=== PATIENT | female | born 1950 | race Caucasian/White ===

== ENCOUNTER → 2023-11-03 12:28 | Outpatient (REF) | payer MEDICARE, SELFPAY | LOC: HWRAD 12:28 | PROVIDERS: ATTENDING PHYSICIAN Internal Medicine Gastroenterology; FAMILY PHYSICIAN Internal Medicine | DX: R14.0 Abdominal distension (gaseous) (principal) | CPT/HCPCS: 76700 ==

== ENCOUNTER → 2023-11-15 17:50 | Outpatient (REF) | payer MEDICARE, SELFPAY | LOC: RCS 17:50 | PROVIDERS: ATTENDING PHYSICIAN Internal Medicine Cardiovascular Disease; FAMILY PHYSICIAN Internal Medicine | DX: R06.02 Shortness of breath (principal); I34.0 Nonrheumatic mitral (valve) insufficiency | CPT/HCPCS: 71046; 93306 ==

== ENCOUNTER 2023-11-29 16:18 | Emergency (ER) | payer MEDICARE, SELFPAY ==
[2023-11-29 16:28] VITALS: BP 94/68
[2023-11-29 18:33] VITALS: BMI 32.1
[2023-11-29 18:35] VITALS: BP 114/67
--- NOTE | 2023-11-29 19:11 | ED.MUSCINJ ---
HPI-Injury
General
Chief Complaint: Musculo-Skeletal Complaint
Source: patient
Exam Limitations: none
Time Seen by Provider: 11/29/23 18:00
Nursing documentation reviewed up to this point in time: agreed with
Travel History
Have you had any contact with someone who has COVID-19?: No
Do you have any symptoms of coronavirus? Fever > 100 degrees, chills, cough, shortness of breath, sore throat, loss of taste or smell, muscle aches, or headache?: No
History of Present Illness-Injury
Is this injury a work related problem?: No
Is pt an associate of [facility]?: No
Initial Injury comments:
Patient to ED with complaint of pain and swelling to left lat ankle. States she rolled ankle this afternoon. Unable to bear weight due to pain. Brought to ED by family for eval.
Past History
Past History
ED Past Medical History: HTN, Hypothyroidism, Other (ETOH abuse/dependency, C. difficile) and Other (Patient has a history of neck and back pain, Mitral valve prolapse, arthritis, thyroid disorder.)
ED Past Surgical History: Appendectomy, Gynecological and Other (Patient has history of thyroid surgery due to thyroid cancer, right knee surgery, tubal ligation, hysterectomy, hernia surgery, Savage cyst surgery, and lip surgery x8)
Patient has exhibited threatening behavior?: No
PSI?: No
Social History
Tobacco: Non-smoker
Alcohol: Daily (Wine at least 3 glasses)
Drug: None
Personal:
Living: alone
Employment: Retired
Family History
Family History: Diabetes and Other (Noncontributory)
Review of Systems
Review of Systems
Allergies reviewed?: Yes
All Other Systems: ROS reviewed and negative except as documented in HPI and ROS
Constitutional: Reports no symptoms
Musculoskeletal: Reports joint pain (pain swelling and bruising to left lat nakle)
Skin: Reports no symptoms
Neurological: Reports no symptoms
Psychiatric: Reports no symptoms
Musculoskeletal Injury Exam
Musculoskeletal Injury Exam
Left Lateral Ankle:
Pain with Movement?: Moderate
Tender to palpation?: Moderate
Soft tissue swelling?: Moderate
External deformity and angulation?: None
Joint effusion?: None
Contusion?: None
Hematoma-local bleeding into tissue?: Moderate
Strain- Sprain- Tear (Connective tissue injury)?: Moderate
Crepitus with movement?: No
Joint instability?: No
Malalignment/deformity?: No
Range of motion: Limited
Distal skin color and temperature: normal-warm & good color
Capillary Refill: normal
Normal distal neurovascular exam?: Yes
Peripheral Pulses: posterior tibial (left): 3+ and dorsalis pedis (left): 3+
Phy Exam
General Physical Exam
General Presentation: well appearing and mild distress
General age: appears stated age
General Skin: warm and dry
General Habitus: normal
General Mental: alert
Musculoskeletal Exam
Musculoskeletal Exam: neuro vasc intact and other (Achilles intact. No tenderness base of 5th. Tenderness oveer left proximal tib. Xray neg for fx. No tenderness over navicular.)
Skin Exam
Skin Exam: normal color, warm/dry and no rash
Psychiatric Exam
Psychiatric Exam: normal mood/affect
Injury Course
Orders/Labs/Results
Orders:
Orders
11/29/23 16:33
Ankle, left 3 view CR [CR Ankle - Left Min 3 Views ] Urgent
Comment:
Reason For Exam: pain
11/29/23 18:05
Oxycodone/Acetaminophen [Percocet 5/325] 1 tablet PO NOW STA
Tib/Fib, Left 2 View [CR Leg Tibia/fibula Left 2 Vw] Urgent
Comment:
Reason For Exam: fall, pain
11/29/23 18:39
Ortho Boot Left- Treatment ONCE
Short or tall?: Tall
*Radiology
Radiology exam reviewed: radiology read reviewed
*Pulse Oximetry
Patient hypoxic: no
*Critical Care Note
Total Time (30-74mins, 75-104mins- exclusive of procedures): Not Applicable
ED Attending Note
-
Portions of this chart may have been created with voice recognition software.� Occasional wrong word or��sound alike� substitutions may have occurred due to the inherent limitations of voice recognition software.
Discharge Plan
Departure
Patient Disposition: Home (Routine Discharge)
Date of Disposition: 11/29/23
Time of Disposition: 18:29
Patient with high blood pressure during this ER visit?: No
Condition: Good
Covid-19: Not Applicable
Discharge Problem:
Foot fracture
Instructions: Using Cold for Pain, Foot Fracture
Prescriptions:
New
oxycodone 5 mg capsule
5 mg PO Q6H PRN (Reason: Pain) Qty: 10 0RF
No Action
escitalopram oxalate 10 MG tablet
20 mg PO DAILY
amlodipine [Norvasc] 5 MG tablet
5 mg PO DAILY Qty: 0 0RF
Rx Instructions:
Hold if systolic blood pressure <130 while on Oxycodone
clonazepam 1 MG tablet
1 mg PO BIDPRN PRN (Reason: Anxiety ) Qty: 1 0RF
oxycodone-acetaminophen 5-325 mg Tablet
1 tab PO Q6HPRN PRN (Reason: severe pain)
gabapentin 600 mg Tablet
600 mg PO TID
cholecalciferol (vitamin D3) [Vitamin D3] 25 mcg (1,000 unit) Tablet
25 mcg PO DAILY
Medical Marijuana
2 - 3 tab PO DAILYPRN MDD gummy candies PRN (Reason: mild pain)
atorvastatin 20 mg tablet
20 mg PO DAILY
labetalol 200 MG tablet
200 mg PO BID
Rx Instructions:
Hold if systolic blood pressure <100 while on Oxycodone
levothyroxine [Synthroid] 112 mcg Tablet
112 mcg PO DAILY
loperamide 2 mg Capsule
2 mg PO Q6HPRN PRN (Reason: diarrhea) 10 Days Qty: 40 0RF
vancomycin 125 mg capsule
125 mg PO QID 7 Days Qty: 28 0RF
Referrals:
Jason Morales MD [Active] - Call in 1-3 days for appt
Interventions
Interventions:
*Risk Screen - Suicide Last Done: 11/29/23 16:28
*General Assessment Last Done: 11/29/23 16:28
*Neglect/Abuse Screening Last Done: 11/29/23 16:28
ED-Musculoskeletal Assessment Last Done: 11/29/23 18:38
== END 2023-11-29 19:21 | disposition home or self-care (01) ==
LOC: EMR 16:18
PROVIDERS: EMERGENCY PHYSICIAN Emergency Medicine; FAMILY PHYSICIAN Internal Medicine
DX: S92.252A Displaced fracture of navicular [scaphoid] of left foot, initial encounter for closed fracture (principal); X50.1XXA Overexertion from prolonged static or awkward postures, initial encounter
CPT/HCPCS: 99283; 73590; 73610

== ENCOUNTER 2023-12-13 06:12 | Day surgery (SDC) | payer MEDICARE, SELFPAY ==
[2023-12-13] VITALS (10 sets, daily range): BP systolic 99–129; BP diastolic 62–78; BMI 31.8
[2023-12-13] MEDS: NORMOSOL-R 1000 IV (09:42)
[2023-12-13] MEDS: TYLENOL 1000 MG PO (09:42)
[2023-12-13] MEDS: CELEBREX 200 MG PO (09:42)
[2023-12-13] MEDS: DILAUDID 0.5 MG IV (12:23)
== END 2023-12-13 14:50 | disposition home or self-care (01) ==
LOC: SDS 06:12
PROVIDERS: ATTENDING PHYSICIAN Student in an Organized Health Care Education/Training Program
DX: S92.342A Displaced fracture of fourth metatarsal bone, left foot, initial encounter for closed fracture (principal); S92.352A Displaced fracture of fifth metatarsal bone, left foot, initial encounter for closed fracture; S93.492A Sprain of other ligament of left ankle, initial encounter; S93.412A Sprain of calcaneofibular ligament of left ankle, initial encounter; S90.02XA Contusion of left ankle, initial encounter; W10.9XXA Fall (on) (from) unspecified stairs and steps, initial encounter
CPT/HCPCS: 27695; 28475 ×2; 76000; C1713

== ENCOUNTER → 2024-03-08 13:41 | Outpatient (REF) | payer MEDICARE, SELFPAY | LOC: REG 13:41 | PROVIDERS: ATTENDING PHYSICIAN Internal Medicine Gastroenterology; FAMILY PHYSICIAN Internal Medicine | DX: R19.7 Diarrhea, unspecified (principal) | CPT/HCPCS: 82653; 83993; 87045; 87046; 87324; 87328; 87329; 87427; 87449 ==

== ENCOUNTER → 2024-03-14 11:27 | Outpatient (REF) | payer MEDICARE, SELFPAY | LOC: RAD 11:27 | PROVIDERS: ATTENDING PHYSICIAN Internal Medicine Gastroenterology; FAMILY PHYSICIAN Internal Medicine | DX: R19.7 Diarrhea, unspecified (principal) | CPT/HCPCS: 74018 ==

== ENCOUNTER 2024-06-27 12:41 | Emergency (ER) | payer MEDICARE, SELFPAY ==
[2024-06-27 12:44] VITALS: BP 130/85
--- NOTE | 2024-06-27 12:48 | ED.GENMED ---
ED Provider Triage
<Darline Brunson PA-C - Last Filed: 06/27/24 12:54>
-
Patient seen by provider in Triage?: Seen in Triage
Attestation: A medical screening examination has been initiated by a qualified medical provider. Based on the assessment performed at this time, it has been determined that an emergent medical condition may exist and the patient has been informed
that further medical evaluation and possible additional diagnostic testing may be needed.
HPI: 73yoF here for detox eval. Patient drinks 2 bottles of wine/day. Last drink 1 hour ago. Wants help going through withdrawal. Had a fall last night with +head strike. No hx of withdrawal seizures.
GENERAL: Alert , in no apparent distress
EYE: No visual abnormalities.
NECK: Trachea midline
ENT: No visible abnormalities.
LUNGS: No acute respiratory distress
NEUROLOGICAL: Alert and oriented
SKIN: Skin intact. No visible changes.
MUSCULOSKELETAL: Moving extremities normally
PSYCH: Normal and appropriate interaction.
This is a medical evaluation conducted in person to initiate diagnostic evaluation and provide initial therapeutics. Please see further documentation by the treating clinician.
Labs, ETOH level, EKG, and CT head/facial bones/cervical spine ordered.
History of Present Illness
<Darline Brunson PA-C - Last Filed: 06/27/24 12:54>
General
Chief Complaint: Alcohol Problem
Time Seen by Provider: 06/27/24 13:49
<[place] Gar[place] PA-C - Last Filed: 06/27/24 15:05>
General
Source: patient
History of Present Illness
History of Present Illness:
73-year-old female with past medical history of hypertension, hyperlipidemia, previous thyroid cancer, anxiety and depression, alcohol abuse presenting to the emergency department with family with concerns of worsening alcohol use over the last 2
weeks. Patient's daughter reports that patient has been depressed stemming from multiple issues over many years including the of her approximately 15 years ago which was a sudden due to a cerebral aneurysm. About 5 years ago
patient was admitted to this facility for alcohol withdrawal and since that time had been sober up until about 1 year ago. Patient would have the occasional drink but started binge drinking again about 2 weeks ago. Patient reportedly fell
yesterday injuring her left lip but otherwise presently has no other concerns. Denies any SI or HI, no other substance abuse.
Past History
<Darline Brunson PA-C - Last Filed: 06/27/24 12:54>
Past History
ED Past Medical History: HTN, Hypothyroidism, Other (ETOH abuse/dependency, C. difficile) and Other (Patient has a history of neck and back pain, Mitral valve prolapse, arthritis, thyroid disorder.)
ED Past Surgical History: Appendectomy, Gynecological and Other (Patient has history of thyroid surgery due to thyroid cancer, right knee surgery, tubal ligation, hysterectomy, hernia surgery, Savage cyst surgery, and lip surgery x8)
Patient has exhibited threatening behavior?: No
PSI?: No
Social History
Tobacco: Non-smoker
Alcohol: Daily (Wine at least 3 glasses)
Drug: None
Personal:
Living: alone
Employment: Retired
Family History
Family History: Diabetes and Other (Noncontributory)
Review of Systems
<[place] Gar[place] PA-C - Last Filed: 06/27/24 15:05>
Review of Systems
All Other Systems: ROS reviewed and negative except as documented in HPI and ROS
Phy Exam
<[place] PA-C - Last Filed: 06/27/24 15:05>
Physical Exam
Physical Exam:
GENERAL: Alert , in no apparent distress
EYE: conjunctiva clear
NECK: Supple
ENT: o/p clr, mmm. small ecchymosis lateral upper/lower left lip
CARDIAC: Regular rate and rhythm
LUNGS: Clear breath sounds bilaterally, no acute respiratory distress, no wheezes/rales/rhonchi
NEUROLOGICAL: Alert and oriented x 3, no tremors
SKIN: Warm and dry, skin intact.
MUSCULOSKELETAL: well perfused.
PSYCH: Normal and appropriate interaction.
Scores
<[place] PA-C - Last Filed: 06/27/24 15:05>
Heart Failure Risk
Heart Failure Risk Score: Not Applicable
Heart Score for Chest Pain Patients
STEMI patient?: Not applicable
Withdrawal Assessment of Alcohol
Withdrawal Assessment Completed?: Yes
Nausea and Vomiting: No nausea and no vomiting
Tactile Disturbances: None
Tremor: No tremor
Auditory Disturbances: Not present
Paroxysmal Sweats: No sweat visible
Visual Disturbances: Not present
Anxiety: Mild anxiety
Headache, Fullness in Head: Not present
Agitation: Normal activity
Orientation and clouding of sensorium: Oriented and can do serial additions
Total CIWA Score: 1
Alcohol Withdrawal Medication Recommendation: Equal to MSAS Score 0-4. Monitor & re-assess q2hrs, NO MEDICATION NEEDED
Course
<Darline Brunson PA-C - Last Filed: 06/27/24 12:54>
Orders/Labs/Results
Orders:
Orders
06/27/24 12:52
Electrocardiogram (*1) Urgent
Reason for Study: Other
Other Reason for Exam: alcohol withdrawal
CT Cervical Spine W/o Iv Contr Urgent
Comment:
Reason For Exam: Fall, intoxication
CT Facial Bones W/o Iv Contras Urgent
Comment:
Reason For Exam: Fall, intoxication
CT Head W/o Iv Contrast Urgent
Comment:
Reason For Exam: Fall, intoxication
EKG- Treatment ONCE
06/27/24 12:58
Alcohol Urgent
Complete Blood Count/With Diff Urgent
Comprehensive Metabolic Panel Urgent
Magnesium Urgent
Abnormal Lab Results
06/27/24
12:58
RBC 4.10 L 10^6/uL
(4.20-5.40)
MCH 31.7 H pg
(27.0-31.0)
RDW 15.2 H %
(11.5-14.5)
Potassium 5.5 H mmol/L
(3.5-5.1)
Chloride 96 L mmol/L
(98-107)
Carbon Dioxide 20 L mmol/L
(22-30)
Glucose 102 H mg/dl
(70-99)
AST 68 H U/L
(14-36)
ALT 37 H U/L
(0-35)
Albumin 5.4 H g/dl
(3.5-5.0)
06/27/24 12:58
06/27/24 12:58
Vital Signs
Initial and Last Documented VS:
Initial Vital Signs
Temp Pulse Resp BP Pulse Ox
98.4 F 76 18 130/85 93
06/27/24 12:44 06/27/24 12:44 06/27/24 12:44 06/27/24 12:44 06/27/24 12:44
Last Documented Vital Signs
Temp Pulse Resp BP Pulse Ox
98.4 F 74 16 150/89 95
06/27/24 12:44 06/27/24 14:22 06/27/24 14:22 06/27/24 14:22 06/27/24 14:22
<[place] Garza PA-C - Last Filed: 06/27/24 15:05>
Orders/Labs/Results
Orders:
Orders
06/27/24 12:52
Electrocardiogram (*1) Urgent
Reason for Study: Other
Other Reason for Exam: alcohol withdrawal
CT Cervical Spine W/o Iv Contr Urgent
Comment:
Reason For Exam: Fall, intoxication
CT Facial Bones W/o Iv Contras Urgent
Comment:
Reason For Exam: Fall, intoxication
CT Head W/o Iv Contrast Urgent
Comment:
Reason For Exam: Fall, intoxication
EKG- Treatment ONCE
06/27/24 12:58
Alcohol Urgent
Complete Blood Count/With Diff Urgent
Comprehensive Metabolic Panel Urgent
Magnesium Urgent
Abnormal Lab Results
06/27/24
12:58
RBC 4.10 L 10^6/uL
(4.20-5.40)
MCH 31.7 H pg
(27.0-31.0)
RDW 15.2 H %
(11.5-14.5)
Potassium 5.5 H mmol/L
(3.5-5.1)
Chloride 96 L mmol/L
(98-107)
Carbon Dioxide 20 L mmol/L
(22-30)
Glucose 102 H mg/dl
(70-99)
AST 68 H U/L
(14-36)
ALT 37 H U/L
(0-35)
Albumin 5.4 H g/dl
(3.5-5.0)
06/27/24 12:58
06/27/24 12:58
Vital Signs
Initial and Last Documented VS:
Initial Vital Signs
Temp Pulse Resp BP Pulse Ox
98.4 F 76 18 130/85 93
06/27/24 12:44 06/27/24 12:44 06/27/24 12:44 06/27/24 12:44 06/27/24 12:44
Last Documented Vital Signs
Temp Pulse Resp BP Pulse Ox
98.4 F 74 16 150/89 95
06/27/24 12:44 06/27/24 14:22 06/27/24 14:22 06/27/24 14:22 06/27/24 14:22
<[place] Garza PA-C - Last Filed: 06/27/24 15:05>
MDM/Problems Addressed
MDM/Problems Addressed:
73-year-old female presenting to the emergency department for evaluation of alcohol abuse. Daughter was concerned for possible withdrawal. Patient not exhibiting any signs of acute withdrawal. I would not expect patient to have signs at this time
given her last drink was approximately 1 hour prior to arrival to the emergency department. I did offer consultation with [facility] as well as [facility] however patient declines both and states she would not want to do any inpatient
management. I explained to the patient that by agreeing to be consulted with with these facilities does not mean she would need to go inpatient but she could merely help as an outpatient and other resources however she still declines. Patient is
going to go home with her daughter and stay with her for the evening. Will prescribe small course of Librium to help with withdrawal symptoms if patient starts with any signs of withdrawal. Both the patient and daughter were counseled on signs of
withdrawal and return precautions to the ER. Patient is otherwise stable for discharge.
Chronic conditions affecting care: Psychiatric illness (Anxiety/depression/alcohol abuse)
Acute Exacerbation and/or Progression of Chronic Illness: Psychiatric illness (Anxiety/depression/alcohol abuse.)
<[place] Gar[place] PA-C - Last Filed: 06/27/24 15:05>
*Pulse Oximetry
Patient hypoxic: no
*EKG
Interpreted by ED Provider?: Yes
Heart Rate: 72
Rate: normal
Rhythm: sinus
Prospect: left axis deviation
Ischemia: T-wave inversion (V1)
*Critical Care Note
Total Time (30-74mins, 75-104mins- exclusive of procedures): Not Applicable
Data Reviewed
Review of Other/Old Records Reveals: Labs and Records
Source: patient, records and family
ED Attending Note
<Darline Brunson PA-C - Last Filed: 06/27/24 12:54>
-
Portions of this chart may have been created with voice recognition software.� Occasional wrong word or��sound alike� substitutions may have occurred due to the inherent limitations of voice recognition software.
Discharge Plan
Departure
Patient Disposition: Home (Routine Discharge)
Date of Disposition: 06/27/24
Time of Disposition: 14:27
Patient with high blood pressure during this ER visit?: Yes
Discharge Problem:
Alcohol abuse
Instructions: Alcohol Use Disorder (DC)
Prescriptions:
New
chlordiazepoxide HCl 25 mg capsule
25 mg PO BID PRN (Reason: alcohol withdrawal) Qty: 6 0RF
No Action
escitalopram oxalate 10 MG tablet
20 mg PO DAILY
amlodipine [Norvasc] 5 MG tablet
5 mg PO DAILY Qty: 0 0RF
Rx Instructions:
Hold if systolic blood pressure <130 while on Oxycodone
clonazepam 1 MG tablet
1 mg PO BIDPRN PRN (Reason: Anxiety ) Qty: 1 0RF
oxycodone-acetaminophen 5-325 mg Tablet
1 tab PO Q6HPRN PRN (Reason: severe pain)
labetalol 200 MG tablet
200 mg PO BID
Rx Instructions:
Hold if systolic blood pressure <100 while on Oxycodone
levothyroxine [Synthroid] 112 mcg Tablet
112 mcg PO DAILY
Rx Instructions:
Patient needs brand name synthroid
atorvastatin [Lipitor] 20 mg Tablet
20 mg PO DAILY
famotidine [Pepcid] 20 mg Tablet
20 mg PO DAILY
Referrals:
Axel Becerra MD [Family Provider] -
Interventions
Interventions:
*Risk Screen - Suicide Last Done: 06/27/24 12:44
*General Assessment Last Done: 06/27/24 12:44
*Neglect/Abuse Screening Last Done: 06/27/24 12:44
*ED COVID-19 Vaccine History Last Done: 06/27/24 12:51
*Nursing Disposition Last Done: 06/27/24 14:44
ED- Neurological Assessment Last Done: 06/27/24 14:16
ED-Psychological Assessment Last Done: 06/27/24 14:16
Discharge Date and Time
Discharge Date/Time: 06/27/24 14:45
Print Language: MONGOLIAN
[2024-06-27 13:18] LABS: % Basophils 0.9 % (0-2); % Eosinophils 0.9 % (0-6); % Immature Granulocytes 0.2 % (0-0.5); % Lymphocytes 24.5 % (20.5-51.1); % Monocytes 7.9 % (1.7-9.3); % Neutrophils 65.6 % (42.2-75.2); Absolute Basophils 0.1 10^3/uL (0-0.2); Absolute Eosinophils 0.1 10^3/uL (0-0.7); Absolute Lymphocytes 1.4 10^3/uL (1.2-3.4); Absolute Monocytes 0.4 10^3/uL (0.1-0.6); Absolute Neutrophils 3.7 10^3/uL (1.4-6.5); Mean Corp Hgb Conc. 35.1 g/dL (33.0-37.0); Mean Corpuscular Hgb 31.7 pg (27.0-31.0); Mean Corpuscular Volume 90.2 fL (81.0-99.0); Mean Platelet Volume 8.5 fL (7.4-10.4); Nucleated Red Blood Cells % 0 %; Platelet Count 252 10^3/uL (130-400); Red Cell Dist. Width 15.2 % (11.5-14.5); White Blood Cell Count 5.6 10^3/uL (4.8-10.8)
[2024-06-27 13:29] LABS: ALT (SGPT) 37 U/L (0-35); AST (SGOT) 68 U/L (14-36); Albumin 5.4 g/dl (3.5-5.0); Alcohol 230 mg/dl; Alkaline Phosphatase 111 U/L (38-126); Blood Urea Nitrogen 12 mg/dl (7-17); Calcium 9.6 mg/dl (8.4-10.2); Carbon Dioxide 20 mmol/L (22-30); Chloride 96 mmol/L (98-107); Glucose 102 mg/dl (70-99); Magnesium 1.8 mg/dl (1.6-2.3); Potassium 5.5 mmol/L (3.5-5.1); Sodium 137 mmol/L (135-145); Total Bilirubin 0.8 mg/dl (0.2-1.3); Total Protein 7.9 g/dl (6.3-8.2); eGFR > 60.00
[2024-06-27 14:22] VITALS: BP 150/89
== END 2024-06-27 14:45 | disposition home or self-care (01) ==
LOC: EMR 12:41
PROVIDERS: Physician Assistant; EMERGENCY PHYSICIAN Emergency Medicine; FAMILY PHYSICIAN Internal Medicine
DX: F10.10 Alcohol abuse, uncomplicated (principal); I10 Essential (primary) hypertension; E78.5 Hyperlipidemia, unspecified; F32.A Depression, unspecified; F41.9 Anxiety disorder, unspecified
CPT/HCPCS: 99284; 70450; 70486; 72125; 80053; 82077; 83735; 85025; 93005

== ENCOUNTER 2024-06-28 23:03 | Inpatient (IN) | payer MEDICARE, SELFPAY ==
[2024-06-28 15:21] VITALS: BP 134/94
--- NOTE | 2024-06-28 15:31 | ED.GENMED ---
ED Provider Triage
<Lake De La Garza PA-C - Last Filed: 06/28/24 15:31>
-
Patient seen by provider in Triage?: Seen in Triage
Attestation: A medical screening examination has been initiated by a qualified medical provider. Based on the assessment performed at this time, it has been determined that an emergent medical condition may exist and the patient has been informed
that further medical evaluation and possible additional diagnostic testing may be needed.
HPI: Seen in the ER yesterday for acute alcohol intoxication, declined [facility] and [facility] crisis consult. Back today with alcohol withdrawal symptoms. She did take the Librium around 11 AM but without any relief. Presently very shaky. Has
had admission for alcohol withdrawal before. Otherwise hemodynamically stable awake alert and oriented
GENERAL: Alert , in no apparent distress
EYE: No visual abnormalities.
NECK: Trachea midline
ENT: No visible abnormalities.
LUNGS: No acute respiratory distress
NEUROLOGICAL: Alert and oriented
SKIN: Skin intact. No visible changes.
MUSCULOSKELETAL: Moving extremities normally
PSYCH: Normal and appropriate interaction.
This is a medical evaluation conducted in person to initiate diagnostic evaluation and provide initial therapeutics. Please see further documentation by the treating clinician.
History of Present Illness
<Lake De La Garza PA-C - Last Filed: 06/28/24 15:31>
General
Chief Complaint: Withdrawal Symptoms
Time Seen by Provider: 06/28/24 19:08
<Soha Patel PA-C - Last Filed: 06/28/24 22:21>
General
Source: patient
Exam Limitations: none
Nursing documentation reviewed up to this point in time: agreed with
History of Present Illness
History of Present Illness:
pt is a 73 y/o F with h/o htn, hld, alcoholism
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
today she says she feels worse, with more shakes and anxiety, n/v and epigastric pain
she last had a drink at 430 am
her drink of choice is white wine; she normally drinks 2 1.5L bottles a day
she has had an admission for alcohol detox previously 5 yeras ago and then was sober for a few years before slowly starting back up
she desires to quit
she has not had any alcohol withdrawal seizure in her past
she has not had any hallucinations
she feels anxious, with a mild headache
Past History
<Lake De La Garza PA-C - Last Filed: 06/28/24 15:31>
Past History
ED Past Medical History: HTN, Hypothyroidism, Other (ETOH abuse/dependency, C. difficile) and Other (Patient has a history of neck and back pain, Mitral valve prolapse, arthritis, thyroid disorder.)
ED Past Surgical History: Appendectomy, Gynecological and Other (Patient has history of thyroid surgery due to thyroid cancer, right knee surgery, tubal ligation, hysterectomy, hernia surgery, Savage cyst surgery, and lip surgery x8)
Patient has exhibited threatening behavior?: No
PSI?: No
Social History
Tobacco: Non-smoker
Alcohol: Daily (Wine at least 3 glasses)
Drug: None
Personal:
Living: alone
Employment: Retired
Family History
Family History: Diabetes and Other (Noncontributory)
Review of Systems
<Soha Patel PA-C - Last Filed: 06/28/24 22:21>
Review of Systems
Allergies reviewed?: Yes
All Other Systems: Not applicable
Phy Exam
<CHAVEZ Palacios Last Filed: 06/28/24 22:21>
Physical Exam
Physical Exam:
GENERAL: Alert , anxious, tremulous
EYE: pupils equal and reactive
NECK: Supple
ENT: o/p clr, dry
CARDIAC: tachycardic, no edema
LUNGS: Clear breath sounds bilaterally, no acute respiratory distress, no wheezes/rales/rhonchi
ABDOMEN: Soft, mod LUQ tenderness;, no r/g, no cvat, normal bowel sounds
NEUROLOGICAL: Alert and oriented, no focal neuro deficits, anxious, no deficits
SKIN: Warm and dry, skin intact.
MUSCULOSKELETAL: No edema, well perfused. neg chirag's sign
PSYCH: anxious,, tremulous
Scores
<Soha Patel PA-C - Last Filed: 06/28/24 22:21>
Withdrawal Assessment of Alcohol
Withdrawal Assessment Completed?: Yes
Nausea and Vomiting: Intermittent nausea with dry heaves
Tactile Disturbances: None
Tremor: Not visible, but can be felt fingertip to fingertip
Auditory Disturbances: Not present
Paroxysmal Sweats: No sweat visible
Visual Disturbances: Not present
Anxiety: Mild anxiety
Headache, Fullness in Head: Mild
Agitation: Moderately fidgety and restless
Orientation and clouding of sensorium: Oriented and can do serial additions
Total CIWA Score: 12
Alcohol Withdrawal Medication Recommendation: Equal to MSAS Score 5-7. Lorazepam 1mg IV or PO NOW & re-assess q2hrs
Course
<Lake De La Garza PA-C - Last Filed: 06/28/24 15:31>
Orders/Labs/Results
Orders:
Orders
06/28/24 15:32
Alcohol Urgent
Complete Blood Count/With Diff Urgent
Comprehensive Metabolic Panel Urgent
Lipase Urgent
Comment: ADD ON
06/28/24 19:30
Add On- LAB Urgent
Tests Added?: lipase
Electrocardiogram (*1) Urgent
Reason for Study: QTc Monitoring
CT Abd/Pel (IV only)-DH only Urgent
Comment:
Reason For Exam: LUQ fabricio, vomiting, alcoholism
EKG- Treatment ONCE
Lactated Ringers [Lr] 500 ml IV BOLUS
Lorazepam [Ativan] 1 mg IV NOW STA
06/28/24 20:10
Thiamine Injection 100 mg IV NOW STA
06/28/24 20:11
Ondansetron Injectable [Zofran] 4 mg IV NOW STA
06/28/24 20:25
FOLic ACID [Folvite] 1 mg 0.9% Sodium Chloride 50 ml [Nss] 50 ml IV NOW
06/28/24 20:54
Lorazepam [Ativan] 1 mg IV NOW STA
Abnormal Lab Results
06/28/24
15:32
RBC 4.12 L 10^6/uL
(4.20-5.40)
MCH 31.6 H pg
(27.0-31.0)
RDW 14.9 H %
(11.5-14.5)
Absolute Lymphs (auto) 1.0 L 10^3/uL
(1.2-3.4)
Neutrophils % 77.5 H %
(42.2-75.2)
Lymphocytes % 15.3 L %
(20.5-51.1)
Potassium 5.5 H mmol/L
(3.5-5.1)
Chloride 97 L mmol/L
(98-107)
BUN 18 H mg/dl
(7-17)
Glucose 127 H mg/dl
(70-99)
Total Bilirubin 1.8 H D mg/dl
(0.2-1.3)
AST 82 H U/L
(14-36)
ALT 48 H U/L
(0-35)
Total Protein 8.3 H g/dl
(6.3-8.2)
Albumin 5.6 H g/dl
(3.5-5.0)
06/28/24 15:32
06/28/24 15:32
Vital Signs
Initial and Last Documented VS:
Initial Vital Signs
Temp Pulse Resp BP Pulse Ox
98.6 F 89 18 134/94 98
06/28/24 15:21 06/28/24 15:21 06/28/24 15:21 06/28/24 15:21 06/28/24 15:21
Last Documented Vital Signs
Temp Pulse Resp BP Pulse Ox
99.0 F 72 16 154/81 98
06/28/24 20:30 06/28/24 20:00 06/28/24 20:00 06/28/24 20:00 06/28/24 19:45
<Soha Patel PA-C - Last Filed: 06/28/24 22:21>
Orders/Labs/Results
Orders:
Orders
06/28/24 15:32
Alcohol Urgent
Complete Blood Count/With Diff Urgent
Comprehensive Metabolic Panel Urgent
Lipase Urgent
Comment: ADD ON
06/28/24 19:30
Add On- LAB Urgent
Tests Added?: lipase
Electrocardiogram (*1) Urgent
Reason for Study: QTc Monitoring
CT Abd/Pel (IV only)-DH only Urgent
Comment:
Reason For Exam: LUQ fabrciio, vomiting, alcoholism
EKG- Treatment ONCE
Lactated Ringers [Lr] 500 ml IV BOLUS
Lorazepam [Ativan] 1 mg IV NOW STA
06/28/24 20:10
Thiamine Injection 100 mg IV NOW STA
06/28/24 20:11
Ondansetron Injectable [Zofran] 4 mg IV NOW STA
06/28/24 20:25
FOLic ACID [Folvite] 1 mg 0.9% Sodium Chloride 50 ml [Nss] 50 ml IV NOW
06/28/24 20:54
Lorazepam [Ativan] 1 mg IV NOW STA
Abnormal Lab Results
06/28/24
15:32
RBC 4.12 L 10^6/uL
(4.20-5.40)
MCH 31.6 H pg
(27.0-31.0)
RDW 14.9 H %
(11.5-14.5)
Absolute Lymphs (auto) 1.0 L 10^3/uL
(1.2-3.4)
Neutrophils % 77.5 H %
(42.2-75.2)
Lymphocytes % 15.3 L %
(20.5-51.1)
Potassium 5.5 H mmol/L
(3.5-5.1)
Chloride 97 L mmol/L
(98-107)
BUN 18 H mg/dl
(7-17)
Glucose 127 H mg/dl
(70-99)
Total Bilirubin 1.8 H D mg/dl
(0.2-1.3)
AST 82 H U/L
(14-36)
ALT 48 H U/L
(0-35)
Total Protein 8.3 H g/dl
(6.3-8.2)
Albumin 5.6 H g/dl
(3.5-5.0)
06/28/24 15:32
06/28/24 15:32
Vital Signs
Initial and Last Documented VS:
Initial Vital Signs
Temp Pulse Resp BP Pulse Ox
98.6 F 89 18 134/94 98
06/28/24 15:21 06/28/24 15:21 06/28/24 15:21 06/28/24 15:21 06/28/24 15:21
Last Documented Vital Signs
Temp Pulse Resp BP Pulse Ox
99.0 F 72 16 154/81 98
06/28/24 20:30 06/28/24 20:00 06/28/24 20:00 06/28/24 20:00 06/28/24 19:45
<Soha Patel PA-C - Last Filed: 06/28/24 22:21>
MDM/Problems Addressed
Differential Diagnosis Includes:
alcohol withdrawal, pancreaitits, cholelihtiasis;
MDM/Problems Addressed:
73 y/o F
h/o alcoholism
here with n/v/LUQ pain and shakiness starting this morning
last drink 430
has had inpatient detox 5 years ago
seen here yesterday but was not exhibiting symptoms of alcohol withdrawal
was offered [facility] but declined
today LFTs are worse
added on lipase
tender LUQ so will assess with ct scan
ativan ordered
CIWA 12
likely admit
[facility] did speak with patient and agreed she met inpatient criteria
06/28/2024 2100 PM
remedicated with ativan
ct neg;
admit to hospitailst
<Soha Patel PA-C - Last Filed: 06/28/24 22:21>
*Critical Care Note
Total Time (30-74mins, 75-104mins- exclusive of procedures): Not Applicable
ED Attending Note
<Lake De La Garza PA-C - Last Filed: 06/28/24 15:31>
-
Portions of this chart may have been created with voice recognition software.� Occasional wrong word or��sound alike� substitutions may have occurred due to the inherent limitations of voice recognition software.
Discharge Plan
Departure
Patient Disposition: Admit
Date of Disposition: 06/28/24
Time of Disposition: 21:52
Admit to: Telemetry
Presentation/result/management discussed w/ accepting MD/DO: Hospitalist
Condition: Fair
Covid-19: Not Applicable
Discharge Problem:
Alcohol withdrawal, Vomiting
Prescriptions:
No Action
escitalopram oxalate 10 MG tablet
20 mg PO DAILY
amlodipine [Norvasc] 5 MG tablet
5 mg PO DAILY Qty: 0 0RF
Rx Instructions:
Hold if systolic blood pressure <130 while on Oxycodone
clonazepam 1 MG tablet
1 mg PO BIDPRN PRN (Reason: Anxiety ) Qty: 1 0RF
oxycodone-acetaminophen 5-325 mg Tablet
1 tab PO Q6HPRN PRN (Reason: severe pain)
labetalol 200 MG tablet
200 mg PO BID
Rx Instructions:
Hold if systolic blood pressure <100 while on Oxycodone
levothyroxine [Synthroid] 112 mcg Tablet
112 mcg PO DAILY
Rx Instructions:
Patient needs brand name synthroid
atorvastatin [Lipitor] 20 mg Tablet
20 mg PO DAILY
famotidine [Pepcid] 20 mg Tablet
20 mg PO DAILY
chlordiazepoxide HCl 25 mg capsule
25 mg PO BID PRN (Reason: alcohol withdrawal) Qty: 6 0RF
Referrals:
NONE,* [Family Provider] -
Interventions
Interventions:
*Risk Screen - Suicide Last Done: 06/28/24 15:21
*General Assessment Last Done: 06/28/24 15:21
*ED COVID-19 Vaccine History Last Done: 06/28/24 15:21
ED- Neurological Assessment Last Done: 06/28/24 18:55
ED-Psychological Assessment Last Done: 06/28/24 18:56
Discharge Date and Time
Print Language: IRAQI
[2024-06-28 15:40] LABS: % Basophils 0.5 % (0-2); % Eosinophils 0.2 % (0-6); % Immature Granulocytes 0.3 % (0-0.5); % Lymphocytes 15.3 % (20.5-51.1); % Monocytes 6.2 % (1.7-9.3); % Neutrophils 77.5 % (42.2-75.2); Absolute Monocytes 0.4 10^3/uL (0.1-0.6); Absolute Neutrophils 4.9 10^3/uL (1.4-6.5); Hematocrit 37.2 % (37.0-47.0); Mean Corp Hgb Conc. 34.9 g/dL (33.0-37.0); Mean Corpuscular Hgb 31.6 pg (27.0-31.0); Mean Corpuscular Volume 90.3 fL (81.0-99.0); Mean Platelet Volume 8.6 fL (7.4-10.4); Nucleated Red Blood Cells % 0 %; Platelet Count 251 10^3/uL (130-400); Red Blood Cell Count 4.12 10^6/uL (4.20-5.40); Red Cell Dist. Width 14.9 % (11.5-14.5); White Blood Cell Count 6.3 10^3/uL (4.8-10.8)
[2024-06-28 15:59] LABS: ALT (SGPT) 48 U/L (0-35); AST (SGOT) 82 U/L (14-36); Albumin 5.6 g/dl (3.5-5.0); Alkaline Phosphatase 122 U/L (38-126); Blood Urea Nitrogen 18 mg/dl (7-17); Calcium 9.9 mg/dl (8.4-10.2); Carbon Dioxide 22 mmol/L (22-30); Chloride 97 mmol/L (98-107); Glucose 127 mg/dl (70-99); Potassium 5.5 mmol/L (3.5-5.1); Sodium 137 mmol/L (135-145); Total Bilirubin 1.8 mg/dl (0.2-1.3); Total Protein 8.3 g/dl (6.3-8.2); eGFR > 60.00
[2024-06-28 16:00] LABS: Alcohol None Detected
[2024-06-28 18:02] VITALS: BP 114/98
[2024-06-28 18:54] VITALS: BMI 32.1
[2024-06-28 19:00] VITALS: BP 142/84
[2024-06-28] MEDS: ATIVAN 1 MG IV ×2 (19:34→21:04)
[2024-06-28] MEDS: LR 500 IV (19:39)
[2024-06-28 20:00] VITALS: BP 154/81
[2024-06-28 20:15] LABS: Lipase 57 U/L (23-300)
[2024-06-28] MEDS: ZOFRAN 4 MG IV (20:24)
[2024-06-28] MEDS: THIAMINE INJECTION 100 MG IV (20:24)
[2024-06-28] MEDS: FOLVITE 50.2 MG IV (21:04)
[2024-06-28 22:00] VITALS: BP 111/96
--- NOTE | 2024-06-28 22:54 | HPS.HSE ---
Addendum entered and electronically signed by Jhony Rothman MD 06/28/24 23:19:
I saw and examined the patient.
The SQL SERVER ARCHITECT or PA's note was reviewed and I agree with the note.
Comment:
73F�HX ETOH use disorder, HTN , HLD, last ETOH was 430 am 06/28/24 pw�CIWA 12 acute ETOH WDS. S/P Ativan x 2 and� improved.
Hyperkalemia suspect dehydration�due to multiple vomiting
Slightly elevated LFTs c/w�ETOH hepatitis.�
Normal lipase.
NEG CT AP
- ETOH WD protocol
- Generous�IV NS.
- F/u��K in AM.�.�
DVT Px compression device
IP TLM.
Of note: pending Rx reconciliation.�
Original Note:
Family Physician
-
Family Physician: * NONE
Chief Complaint
-
Alcohol Withdrawal
History of Present Illness
Patient is a 73 y/o female past medical history of hypertension, post-surgical hypothyroidism, and alcohol use disorder who presents with alcohol withdrawal. Patient was seen here yesterday for alcohol withdrawal. At that time patient was not
interested in inpatient treatment. She was given a prescription for Librium for withdrawal and discharged home. Patient began drinking again last night with last drink around 4:30 AM this morning. She states she did attempt to take the Librium but
did not tolerate due to vomiting. Patient is lethargic following two doses of Ativan given in the emergency department. She did confirm one prior hospitalization for withdrawal, but denies any prior withdrawal seizure or delirium tremens.
Medical History
Past Medical History
Past Medical History: Reports Other
Additional Past Medical History:
Hypertension
Hypothyroidism
Chronic Pain (Neck / Back)
Chronic Diarrhea
Anxiety / Depression
Thyroid Cancer
Past Surgical History: Reports Other
Additional Past Surgical History:
Left Bunionectomy
Left Hammertoe Deformity Repair
Appendectomy
Thyroidectomy
Left TKA
Tubal Ligation
ALEX
Lip Surgery (multiple)
Social History
Tobacco: Non-smoker
Alcohol: Chronic Alcoholic (Patient reports 1.5 Liters of wine per day)
Personal:
Living: Alone
Employment: Retired
Family History
Family History: Not pertinent
Allergies / Home Medications
Allergies reflects when Allergies were last updated in [facility].
Home Medications with original date entered in [facility]
Allergy/Medication List:
Medications on admission are unable to be verified or confirmed at this time.
If medication reconciliation has not been performed, why?: Medication List N/A (Patient lethargic and unable to provide medication list)
Review of Systems
-
A 12 point ROS was completed and negative except as noted: Yes
Constitutional: Denies Fever or Chills
Respiratory: Denies Cough or Trouble Breathing
Cardiac: Denies Chest Pain or Palpitations
Physical Exam
Vital Signs
Vital Signs
Temp Pulse Resp BP Pulse Ox
99.0 F 75 21 111/96 96
06/28/24 20:30 06/28/24 22:15 06/28/24 22:15 06/28/24 22:00 06/28/24 21:38
Physical Exam
General: Well Developed, Well Nourished and No Apparent Distress
HEENT: Anicteric and Moist mucous membranes
Respiratory: Clear and Non Labored Respirations
Cardiac: S1/S2 and Regular Rhythm; No Tachycardia
GI: Soft and Tender (Mild bilateral upper quadrants without rebound or guarding)
Rectal: Deferred by Provider
Musculoskeletal: No Clubbing, No Cyanosis and No Edema
Skin: Warm and Dry
Neuro: Other (Slightly sedated following Ativan given in ED, eventually able to arouse after calling her name several times)
Psych: Calm
Laboratory Results
-
06/28/24 15:32
06/28/24 15:32
Laboratory Results
Total Bilirubin 1.8 mg/dl (0.2-1.3) H D 06/28/24 15:32
AST 82 U/L (14-36) H 06/28/24 15:32
ALT 48 U/L (0-35) H 06/28/24 15:32
Alkaline Phosphatase 122 U/L (38-126) 06/28/24 15:32
Lipase 57 U/L (23-300) 06/28/24 15:32
Data Reviewed
-
Lab Data: Labs Reviewed by me
Impression/Plan
-
Alcoholic Hepatitis
-Continue to trend liver function tests
-Check PT/INR
-Allow clear liquids
Hyperkalemia
-Continue IVFs
-Recheck potassium in AM
Alcohol Withdrawal
-Continue withdrawal protocol with prn Ativan
-Continue thiamine and folic acid
Essential Hypertension
Hyperlipidemia
Post-Surgical Hypothyroidism
Anxiety / Depression
-Resume meds once able to confirm
DVT proph: SCDs
Code Status: Full Code
[2024-06-28 23:00] VITALS: BP 112/73
--- NOTE | 2024-06-28 23:55 | W.PN.UPDATE ---
Update Note
Progress Note Update
This note serves as an addendum to the H&P by microbiology lab manager SHANICE Luz Marina ALEMAN
HPI
84F HX chr hypotension, HX of inoperable malignant Rt side brain tumor but HCT is negative for mass, CKD 3B, hyperparathyroidism, restless leg syndrome, hypertension, anxiety, sinus bradycardia pw fall , AMS with visual hallucinations,
responding to internal stimuli. She was found on the ground.
patient was seeing things and people in the room, pausing and not answering questions
She didn't recognize her daughter
Reviewed VS:
Vital Signs
Temp Pulse Resp BP Pulse Ox
99.0 F 71 24 112/73 96
06/28/24 20:30 06/28/24 23:00 06/28/24 23:00 06/28/24 23:00 06/28/24 21:38
PE
Gen: NAD
HEENT: Right pupil slightly larger and less reactive than left, status post eye surgery
Lungs: CTA
Cor: RRR
Abdomen: soft benign exam
OPTICAL TECHNICIAN:
MS: Moderate pitting edema bilateral symmetric lower extremitieswit erythema
Psych: appropriate
Abnormal Lab Results
06/28/24
15:32
RBC 4.12 L
MCH 31.6 H
RDW 14.9 H
Absolute Lymphs (auto) 1.0 L
Neutrophils % 77.5 H
Lymphocytes % 15.3 L
Potassium 5.5 H
Chloride 97 L
BUN 18 H
Glucose 127 H
Total Bilirubin 1.8 H D
AST 82 H
ALT 48 H
Total Protein 8.3 H
Albumin 5.6 H
NEG UA
Pending CXR
EKG
NORMAL SINUS RHYTHM
INFERIOR INFARCT (CITED ON OR BEFORE 08-APR-2024)
ABNORMAL ECG
WHEN COMPARED WITH ECG OF 08-APR-2024 16:33,
NO SIGNIFICANT CHANGE WAS FOUND
HCT: No acute intracranial abnormality noted.
11/15/23 TTE
Normal biventricular size and systolic function without regional wall motion
abnormality. Estimated LVEF 55-60%.
Stage I diastolic dysfunction suggestive of abnormal relaxation.
Mild posterior leaflet prolapse of the mitral valve. Mild/moderate mitral
regurgitation.
Last hospitalist admission:
DATE OF ADMISSION: 04/09/2024 - DATE OF DISCHARGE: 04/25/2024
DISCHARGE DIAGNOSES:
1. Statin-induced myopathy.
2. Primary hyperparathyroidism.
3. Hyponatremia.
4. Glaucoma.
5. Chronic kidney disease 3B.
ASSESSMENT & PLAN
B/l Amber presumed cellulitis
- Normal WCC, afebrile
- Empiric IV Cefazolin
AMS with hallucination of unclear etiolgy: TME due to acute infection or Medication WD syndrome
Associated unwitnessed fall around 3 pm and found on the ground
- Calcium 9.9
- NEG US
- fall precaution
- Seroquel 25 mg q12h prn for hallucination
- Psych consult
Interval 4 gm Hgb drop
NEG HoB stool
On Eliquis for PE since april
- Trend Hgb
- check Ferritin, B, Folate
- on Pepcid
Statin-induced myopathy : weaned off Prednisone for 6 weeks
Primary hyperparathyroidism
- Nl calcium
-outpatient follow-up with endocrinology. Dr. Melo [facility]
Essential hypertension -stable.
CKD 3B -stable.
Restless leg syndrome
Hyperlipidemia
Anxiety disorder
Obesity due to excess calories
DVT Px: on Eliquis
Code: Full code
IP MS
[2024-06-29] VITALS (12 sets, daily range): BP systolic 107–149; BP diastolic 58–98
[2024-06-29 00:55] LABS: INR 1.15; PT 14.5 Sec (11.4-14.6)
[2024-06-29] MEDS: NSS 1000 IV ×2 (02:33→12:18)
[2024-06-29] MEDS: ZOFRAN 4 MG IV (02:33)
[2024-06-29] MEDS: ATIVAN 1 MG PO ×3 (06:05→17:00)
[2024-06-29 06:25] LABS: Hematocrit 36.6 % (37.0-47.0); Mean Corp Hgb Conc. 35.5 g/dL (33.0-37.0); Mean Corpuscular Hgb 32.3 pg (27.0-31.0); Mean Corpuscular Volume 90.8 fL (81.0-99.0); Mean Platelet Volume 9.3 fL (7.4-10.4); Platelet Count 243 10^3/uL (130-400); Red Blood Cell Count 4.03 10^6/uL (4.20-5.40); Red Cell Dist. Width 14.8 % (11.5-14.5); White Blood Cell Count 7.2 10^3/uL (4.8-10.8)
[2024-06-29 06:42] LABS: ALT (SGPT) 43 U/L (0-35); AST (SGOT) 79 U/L (14-36); Albumin 5.3 g/dl (3.5-5.0); Alkaline Phosphatase 102 U/L (38-126); Blood Urea Nitrogen 23 mg/dl (7-17); Calcium 9.5 mg/dl (8.4-10.2); Carbon Dioxide 21 mmol/L (22-30); Chloride 99 mmol/L (98-107); Estimated Creatinine Clearance 60 ml/min; GGTP 120 U/L (12-43); Glucose 115 mg/dl (70-99); Magnesium 1.9 mg/dl (1.6-2.3); Phosphorus 4.7 mg/dl (2.5-4.5); Potassium 4.8 mmol/L (3.5-5.1); Sodium 138 mmol/L (135-145); Total Bilirubin 2.2 mg/dl (0.2-1.3); Total Protein 7.8 g/dl (6.3-8.2); eGFR > 60.00
[2024-06-29] MEDS: FOLVITE 1 MG PO (08:15)
[2024-06-29] MEDS: PROTONIX 40 MG PO (08:15)
[2024-06-29] MEDS: THIAMINE INJECTION 200 MG IV ×2 (08:16→19:39)
--- NOTE | 2024-06-29 11:23 | CM ---
CM reviewed chart. CM introduced self and role. Patient lives at home alone with her 3 cats. She is disabled, she shared, because she has scoliosis. She has 4 children and a 'big' family for support. She owns a walker, cane and wheelchair. She is
independent and can drive. She lives in a multi-level home. She has 2 steps to enter into the home. Denies any +SDOHs. One of her family members will provide transportation once she is discharged.
CM CONSULT:
CM consult for [facility] services. CM explained there was a consult placed. Patient verbalized that she was familiar with [facility] because they already came to her room early in the morning to talk to patient about different drug and alcohol resources.
--- NOTE | 2024-06-29 14:39 | W.PN.HOSP.TC ---
Today's Communication/Plan
-
advance diet
stop IVF
cont MSAS
Assessment / Plan
Assessment / Plan
pt is a 73 year old female
Alcoholic Hepatitis with acute withdrawal symptoms--MSAS protocol--follow LFTs--Continue to trend liver function tests--follow PT/INR--Allow clear liquids--thiamine and folic acid
Hyperkalemia--stop IVFs--Recheck potassium in AM
Essential Hypertension--cont meds as able
Hyperlipidemia--noted--lipitor
Post-Surgical Hypothyroidism
Anxiety / Depression--Resume meds
DVT proph: SCDs
Code Status: Full Code
Anticipated Discharge: 24 - 48 hours
Subjective/Interval History
-
Date of Service: June 29, 2024
pt does not want to go to alcohol rehab
Objective Data
-
Labs:
Laboratory Results
06/29/24
06:19
WBC 7.2
Hgb 13.0
Hct 36.6 L
Plt Count 243
Sodium 138
Potassium 4.8
Chloride 99
Carbon Dioxide 21 L
BUN 23 H
Creatinine 0.8
Glucose 115 H
Calcium 9.5
Total Bilirubin 2.2 H
AST 79 H
ALT 43 H
Alkaline Phosphatase 102
Vital Signs:
max temp for 24 hours
06/29/24
00:00
Temp 99.0 F
Vital Signs
Temp Pulse Resp BP Pulse Ox
100.0 F 80 20 149/98 98
06/29/24 12:00 06/29/24 12:00 06/29/24 12:00 06/29/24 12:00 06/29/24 12:00
Review of Systems
-
All other systems: Reviewed and negative
Physical Exam
-
General: Well Developed, Well Nourished and No Apparent Distress
HEENT: Normocephalic and Atraumatic
Respiratory: Clear to Auscultation; Negative Wheezes or Rhonchi
Cardiac: Regular Rhythm and S1/S2; Negative Murmur
GI: Soft, Nontender, Nondistended and Normal Bowel Sounds
Musculoskeletal: No Clubbing, No Cyanosis and No Edema
Neuro: Awake and Alert
--- NOTE | 2024-06-29 17:47 | PTCARENOTE ---
Notified MD Lees of patient endorsement of taking double her Percocet dosage, 'every couple of weeks'. Her last time double dosing was 'about 3 weeks ago'. COWS score 1 at this time. 1mg PO ativan given for MSAS 5 per order
--- NOTE | 2024-06-29 19:07 | PTCARENOTE ---
Messaged overnight MANAGER SALES SUPPORT to see if patient could have home Percocet ordered for chronic back pain
[2024-06-29] MEDS: PERCOCET 5/325 1 TABLET PO (19:39)
[2024-06-29] MEDS: ATIVAN 1 MG IV ×2 (19:48→22:04)
[2024-06-30 01:07] VITALS: BMI 32.6
[2024-06-30] MEDS: ATIVAN 1 MG IV ×2 (01:14→17:14)
[2024-06-30 03:53] VITALS: BP 108/81
[2024-06-30] MEDS: SYNTHROID 112 MCG PO (05:03)
[2024-06-30 06:27] LABS: Hematocrit 32.8 % (37.0-47.0); Hemoglobin 11.4 g/dL (12.0-16.0); Mean Corp Hgb Conc. 34.8 g/dL (33.0-37.0); Mean Corpuscular Hgb 32.3 pg (27.0-31.0); Mean Corpuscular Volume 92.9 fL (81.0-99.0); Mean Platelet Volume 9.5 fL (7.4-10.4); Platelet Count 184 10^3/uL (130-400); Red Blood Cell Count 3.53 10^6/uL (4.20-5.40); Red Cell Dist. Width 14.9 % (11.5-14.5); White Blood Cell Count 4.7 10^3/uL (4.8-10.8)
[2024-06-30 06:37] LABS: Blood Urea Nitrogen 16 mg/dl (7-17); Calcium 8.7 mg/dl (8.4-10.2); Carbon Dioxide 27 mmol/L (22-30); Chloride 100 mmol/L (98-107); Estimated Creatinine Clearance 69 ml/min; Glucose 100 mg/dl (70-99); Magnesium 1.9 mg/dl (1.6-2.3); Potassium 4.3 mmol/L (3.5-5.1); Sodium 140 mmol/L (135-145); eGFR > 60.00
[2024-06-30 07:24] VITALS: BP 119/67
[2024-06-30] MEDS: THIAMINE INJECTION 200 MG IV ×2 (10:08→20:13)
[2024-06-30] MEDS: ATIVAN 1 MG PO ×3 (10:08→20:14)
[2024-06-30] MEDS: LEXAPRO 20 MG PO (10:08)
[2024-06-30] MEDS: LIPITOR 20 MG PO (10:08)
[2024-06-30] MEDS: PROTONIX 40 MG PO (10:08)
[2024-06-30] MEDS: FOLVITE 1 MG PO (10:08)
[2024-06-30 11:10] VITALS: BP 143/95
--- NOTE | 2024-06-30 13:10 | W.PN.HOSP.TC ---
Today's Communication/Plan
-
add phenobarb
consider psych consult
Assessment / Plan
Assessment / Plan
pt is a 73 year old female
Alcoholic Hepatitis with acute withdrawal symptoms--MSAS protocol--follow LFTs--Continue to trend liver function tests--tolerating diet--continue thiamine and folic acid--patient seems very anxious at baseline and it is unclear whether this is acute
withdrawal or exacerbation of anxiety, nevertheless we must treat for withdrawal--received 3 doses of IV Ativan overnight and 1 dose of p.o. Ativan this morning--will start low-dose phenobarbital taper as well
Hyperkalemia--stop IVFs--Recheck potassium in AM
Essential Hypertension--cont meds as able
Hyperlipidemia--noted--lipitor
Post-Surgical Hypothyroidism
Anxiety / Depression--Resume meds
DVT proph: SCDs
Code Status: Full Code
Anticipated Discharge: 24 - 48 hours
Subjective/Interval History
-
Date of Service: June 30, 2024
pt c/o internal anxiety, shakes, twitches
Objective Data
-
Labs:
Laboratory Results
06/30/24
04:42
WBC 4.7 L
Hgb 11.4 L
Hct 32.8 L
Plt Count 184 D
Sodium 140
Potassium 4.3
Chloride 100
Carbon Dioxide 27
BUN 16
Creatinine 0.7
Glucose 100 H
Calcium 8.7
Vital Signs:
max temp for 24 hours
06/30/24
11:10
Temp 98.5 F
Vital Signs
Temp Pulse Resp BP Pulse Ox
98.5 F 82 17 143/95 95
06/30/24 11:10 06/30/24 11:10 06/30/24 11:10 06/30/24 11:10 06/30/24 11:10
I&O
06/29/24 06/30/24 07/01/24
06:59 06:59 06:59
Intake Total 960 / 960 240 / 240
Balance 960 / 960 240 / 240
Review of Systems
-
All other systems: Reviewed and negative
Neuro: Reports Tremors
Psych: Reports Anxious
Physical Exam
-
General: Well Developed, Well Nourished and No Apparent Distress
HEENT: Normocephalic and Atraumatic
Respiratory: Clear to Auscultation; Negative Wheezes or Rhonchi
Cardiac: Regular Rhythm and S1/S2; Negative Murmur
GI: Soft, Nontender, Nondistended and Normal Bowel Sounds
Musculoskeletal: No Clubbing, No Cyanosis and No Edema
Skin: Warm
Neuro: Awake and Alert
Psych: Anxious
[2024-06-30] MEDS: PHENOBARBITAL 97.5 MG IV ×2 (15:17→20:53)
[2024-06-30 15:18] VITALS: BP 143/95
[2024-06-30 19:05] VITALS: BP 121/87
[2024-06-30 23:37] VITALS: BP 139/79
[2024-07-01 03:31] VITALS: BP 142/91
[2024-07-01] MEDS: SYNTHROID 112 MCG PO (06:06)
[2024-07-01 06:30] VITALS: BMI 32.8
[2024-07-01 07:15] VITALS: BP 124/92
[2024-07-01] MEDS: THIAMINE INJECTION 200 MG IV ×2 (08:22→22:08)
[2024-07-01] MEDS: LIPITOR 20 MG PO (08:22)
[2024-07-01] MEDS: PROTONIX 40 MG PO (08:22)
[2024-07-01] MEDS: PHENOBARBITAL 97.5 MG IV ×3 (08:22→22:09)
[2024-07-01] MEDS: FOLVITE 1 MG PO (08:23)
[2024-07-01] MEDS: LEXAPRO 20 MG PO (08:29)
[2024-07-01 08:40] LABS: Hematocrit 35.8 % (37.0-47.0); Hemoglobin 12.1 g/dL (12.0-16.0); Mean Corp Hgb Conc. 33.8 g/dL (33.0-37.0); Mean Corpuscular Hgb 31.8 pg (27.0-31.0); Mean Platelet Volume 9.3 fL (7.4-10.4); Platelet Count 188 10^3/uL (130-400); Red Blood Cell Count 3.81 10^6/uL (4.20-5.40); Red Cell Dist. Width 14.5 % (11.5-14.5); White Blood Cell Count 5.6 10^3/uL (4.8-10.8)
[2024-07-01 09:10] LABS: ALT (SGPT) 51 U/L (0-35); AST (SGOT) 73 U/L (14-36); Albumin 4.6 g/dl (3.5-5.0); Alkaline Phosphatase 86 U/L (38-126); Blood Urea Nitrogen 14 mg/dl (7-17); Calcium 9.1 mg/dl (8.4-10.2); Carbon Dioxide 27 mmol/L (22-30); Chloride 99 mmol/L (98-107); Estimated Creatinine Clearance 80 ml/min; Glucose 111 mg/dl (70-99); Magnesium 1.6 mg/dl (1.6-2.3); Potassium 4.2 mmol/L (3.5-5.1); Sodium 139 mmol/L (135-145); Total Bilirubin 1.3 mg/dl (0.2-1.3); Total Protein 6.7 g/dl (6.3-8.2); eGFR > 60.00
[2024-07-01 11:12] VITALS: BP 130/88
--- NOTE | 2024-07-01 11:38 | W.PN.HOSP.TC ---
Today's Communication/Plan
-
see A/P
Assessment / Plan
Assessment / Plan
A/P:
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
cont MSAS protocol
Started low-dose phenobarbital taper
follow LFTs
continue thiamine and folic acid
Of note, patient very anxious at baseline and it is unclear whether this is acute withdrawal or exacerbation of anxiety
# Hyperkalemia, resolved
# Essential Hypertension
cont meds as able
# Hyperlipidemia
Hold Lipitor for now with elevated LFT
# Post-Surgical Hypothyroidism
Cont Synthroid
# Anxiety / Depression
Cont Lexapro
DVT proph: SCDs
Code Status: Full Code
Dispo: PT OT eval
Anticipated Discharge: 24 - 48 hours
Subjective/Interval History
-
Date of Service: July 01, 2024
Objective Data
-
Labs:
Laboratory Results
07/01/24
07:09
WBC 5.6
Hgb 12.1
Hct 35.8 L
Plt Count 188
Sodium 139
Potassium 4.2
Chloride 99
Carbon Dioxide 27
BUN 14
Creatinine 0.6
Glucose 111 H
Calcium 9.1
Total Bilirubin 1.3
AST 73 H
ALT 51 H
Alkaline Phosphatase 86
Vital Signs:
Vital Signs
Temp Pulse Resp BP Pulse Ox
36.9 C 73 16 130/88 95
07/01/24 11:12 07/01/24 11:12 07/01/24 11:12 07/01/24 11:12 07/01/24 11:12
I&O
06/30/24 07/01/24 07/02/24
06:59 06:59 06:59
Intake Total 960 / 960 1260 / 1260
Balance 960 / 960 1260 / 1260
Review of Systems
-
All other systems: Reviewed and negative
Physical Exam
-
General: Well Developed, Well Nourished, No Apparent Distress, Comfortable and Conversant
HEENT: Normocephalic and Atraumatic
Respiratory: Clear to Auscultation and Non Labored Respirations; Negative Wheezes, Rhonchi or Accessory Resp Muscle Use
Cardiac: Regular Rhythm and S1/S2; Negative Murmur
GI: Soft, Nontender, Nondistended and Normal Bowel Sounds
Musculoskeletal: No Clubbing, No Cyanosis and No Edema
Skin: Warm
Neuro: Awake and Alert
Psych: Calm and Intact Judgement/Insight; Negative Anxious
Data Reviewed
-
CT Scan: Image personally visualized and interpreted and Report Reviewed by me
Medical Tests (Nuc Med, Echo etc): Report Reviewed by me
Labs: Labs Reviewed by me
--- NOTE | 2024-07-01 12:56 | CM ---
Pt seen at bedside to discuss d/c plan. ADC: 24-48 hours
Pt confirmed that [facility] did see her and provided information. Pt will follow up
Pt declines VN need. Pt prev. independent in the home
Pt confirms daughter will transport at d/c
Plan: Home w/ no needs.
[facility] provided
[2024-07-01] MEDS: ATIVAN 1 MG PO (13:54)
[2024-07-01 15:14] VITALS: BP 124/75
[2024-07-01 16:15] VITALS: BP 162/66; PULSE 72; O2SAT 96
[2024-07-02 00:10] VITALS: BP 113/70
[2024-07-02] MEDS: ATIVAN 1 MG PO ×2 (00:35→13:10)
[2024-07-02] MEDS: SYNTHROID 112 MCG PO (05:30)
[2024-07-02 06:00] VITALS: BMI 32.6
[2024-07-02 07:23] LABS: ALT (SGPT) 72 U/L (0-35); AST (SGOT) 86 U/L (14-36); Albumin 4.4 g/dl (3.5-5.0); Alkaline Phosphatase 80 U/L (38-126); Blood Urea Nitrogen 14 mg/dl (7-17); Carbon Dioxide 27 mmol/L (22-30); Chloride 100 mmol/L (98-107); Estimated Creatinine Clearance 69 ml/min; Glucose 117 mg/dl (70-99); Potassium 4.2 mmol/L (3.5-5.1); Sodium 138 mmol/L (135-145); Total Bilirubin 0.8 mg/dl (0.2-1.3); Total Protein 6.6 g/dl (6.3-8.2); eGFR > 60.00
[2024-07-02 07:39] LABS: Magnesium 1.5 mg/dl (1.6-2.3)
[2024-07-02 07:41] VITALS: BP 125/77
[2024-07-02] MEDS: LEXAPRO 20 MG PO (08:15)
[2024-07-02] MEDS: FOLVITE 1 MG PO (08:15)
[2024-07-02] MEDS: VITAMIN B1 100 MG PO ×2 (08:15→19:57)
[2024-07-02] MEDS: PHENOBARBITAL 97.5 MG IV (08:16)
[2024-07-02] MEDS: PROTONIX 40 MG PO (08:17)
--- NOTE | 2024-07-02 11:45 | CM ---
Pt seen at bedside.
PT/OT rec VN, pt agreeable.
Pt prev. had VN/PT through [facility] in [place], however, she does not want to use again
Will explore different home health and send referral prior to d/c
CM f/u w/ [facility] support. Pt stated she wants OP and was told she could participate via phone.
Spoke w/ Ronaldo/[facility] who confirmed pt will be provided info to reach out for OP therapy. Plans to see pt today
IMM reviewed, pt given copy. Copy placed into chart.
Plan: Home w/ VN/PT and [facility] resource
--- NOTE | 2024-07-02 12:33 | W.PN.HOSP.TC ---
Addendum entered and electronically signed by Kandi Neal MD 07/02/24 14:09:
# Hypomagnesemia
Replete IV
Original Note:
Today's Communication/Plan
-
see A/P
Assessment / Plan
Assessment / Plan
A/P:
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
cont MSAS protocol
cont phenobarbital taper
follow LFTs
continue thiamine and folic acid
[facility] on board
# anxiety disorder
Pt states that she has inner anxiety, felt this is the reason for her alcohol abuse
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
Psych CS
# Hyperkalemia, resolved
# Essential Hypertension
cont meds as able
# Hyperlipidemia
Hold Lipitor for now with elevated LFT
# Post-Surgical Hypothyroidism
Cont Synthroid
DVT proph: SCDs
Code Status: Full Code
Dispo: PT OT recc HH
Anticipated Discharge: Within 24 hours
Subjective/Interval History
-
Date of Service: July 02, 2024
Objective Data
-
Labs:
Laboratory Results
07/02/24
06:12
Sodium 138
Potassium 4.2
Chloride 100
Carbon Dioxide 27
BUN 14
Creatinine 0.7
Glucose 117 H
Calcium 9.0
Total Bilirubin 0.8
AST 86 H
ALT 72 H
Alkaline Phosphatase 80
Vital Signs:
Vital Signs
Temp Pulse Resp BP Pulse Ox
36.9 C 84 19 125/77 98
07/02/24 07:41 07/02/24 07:41 07/02/24 07:41 07/02/24 07:41 07/02/24 07:41
I&O
07/01/24 07/02/24 07/03/24
06:59 06:59 06:59
Intake Total 1260 / 1260 840 / 840
Balance 1260 / 1260 840 / 840
Review of Systems
-
All other systems: Reviewed and negative
Psych: Reports Anxious
Physical Exam
-
General: Well Developed, Well Nourished, No Apparent Distress, Comfortable and Conversant
HEENT: Normocephalic and Atraumatic
Respiratory: Clear to Auscultation and Non Labored Respirations; Negative Wheezes, Rhonchi or Accessory Resp Muscle Use
Cardiac: Regular Rhythm and S1/S2; Negative Murmur
GI: Soft, Nontender, Nondistended and Normal Bowel Sounds
Musculoskeletal: No Clubbing, No Cyanosis and No Edema
Skin: Warm
Neuro: Awake and Alert
Psych: Calm and Intact Judgement/Insight (somewhat)
Data Reviewed
-
CT Scan: Image personally visualized and interpreted and Report Reviewed by me
Medical Tests (Nuc Med, Echo etc): Report Reviewed by me
Labs: Labs Reviewed by me
[2024-07-02] MEDS: MAGNESIUM SULFATE 50 IV (12:55)
--- NOTE | 2024-07-02 13:25 | PN.CDI ---
CDI
- -
CDI:
Physician Documentation Request
Admit Date: 06/28/24 23:03
Dear Doctor Ángel,
Clinical Indicators:
Patient admitted with Mild Alcoholic Hepatitis with acute alcohol withdrawal
07/02 Magnesium Sulfate 2mg IV rider x 1.
Magnesium level:
07/02/24
06:12
Magnesium 1.5 L
Based on the above, could you clarify in the progress notes, the appropriate diagnosis, if significant, that supports the above abnormalities and additional evaluation, monitoring and/or treatment rendered:
Hypomagnesemia
Abnormal lab value, clinically insignificant
Other, please specify
Use of terms such as suspected, likely, concern for, or probable (associated with a specific diagnosis that is being evaluated, monitored, or treated as if it exists) are acceptable and can be coded in the inpatient setting, when documented at the
time of discharge.
Thank you,
Windy Murphy RN BSN
CDI Specialist
available via tiger text
Please use your independent medical judgment in providing your response.
[2024-07-02 15:30] VITALS: BP 114/70
--- NOTE | 2024-07-02 16:06 | CS.PSYCHR ---
Consult Summary - Psychiatry
-
Pt is 73 yo female who was seen in the ED 06/27/24 for acute alcohol intoxication, declined [facility] and [facility] Crisis consult. Alcohol level was 230. Pt returned 06/29/24 with alcohol withdrawal symptoms, reported last drink at 4:30 am.
Pt was very shaky, CIWA score 12, given Ativan. Pt has been managed with MSAS/Ativan, receiving 5 doses of 1 mg 06/29 and 06/30. Pt placed on Phenobarb taper 06/30. Psychiatry asked to see due to c/o anxiety. Pt states she feels inner anxiety,
like she is going to explode. Pt resting in bed, alert, calm, cooperative. Pt asking for Klonopin, states she has a prescription for it from her PCP, although not filled per the PDMP. Pt states she was drinking large jugs of wine daily. She
declines rehab, states she plans to return home and have visiting nursing, states she does not like AA. She declines other alternative medications for anxiety, states Gabapentin was not helpful in the past. Pt is on Labetalol for HTN.
Psych Hx: denied
SH: lives alone, is on disability
MSE: alert, oriented, calm, cooperative. Speech coherent, thought goal-directed. No overt signs of anxiety, no agitation. Mood/affect stable. Pt is med-seeking for Klonopin. Insight is limited.
Imp: Alcohol Use d/o, severe. Unspecified anxiety in setting of alcohol withdrawal
Rec: Outpatient addictions therapy; reassessment of anxiety after a significant period of sobriety
Psychiatry will sign off
[2024-07-02] MEDS: LUMINAL 32.4 MG PO ×2 (16:27→21:33)
[2024-07-02] MEDS: PERCOCET 5/325 1 TABLET PO (20:16)
[2024-07-02 23:22] VITALS: BP 108/55
--- NOTE | 2024-07-03 04:18 | DOWNTIME ---
There was a [employer]is [employer] Attendant Downtime on 07/03/2024 from 0100 to 07/03/2024 at 0355. Downtime documentation of patient's care, including medication administrations, has been reconciled in the electronic record per guidelines. Refer to the
patient's paper chart under the miscellaneous tab to see printed paper medication records and downtime forms.
[2024-07-03] MEDS: SYNTHROID 112 MCG PO (05:41)
[2024-07-03 05:45] VITALS: BMI 32.7
[2024-07-03 07:15] LABS: ALT (SGPT) 79 U/L (0-35); AST (SGOT) 77 U/L (14-36); Albumin 4.4 g/dl (3.5-5.0); Alkaline Phosphatase 86 U/L (38-126); Blood Urea Nitrogen 13 mg/dl (7-17); Calcium 8.9 mg/dl (8.4-10.2); Carbon Dioxide 27 mmol/L (22-30); Chloride 99 mmol/L (98-107); Estimated Creatinine Clearance 80 ml/min; Glucose 107 mg/dl (70-99); Potassium 4.4 mmol/L (3.5-5.1); Sodium 138 mmol/L (135-145); Total Bilirubin 0.6 mg/dl (0.2-1.3); Total Protein 6.5 g/dl (6.3-8.2); eGFR > 60.00
[2024-07-03 07:30] VITALS: BP 121/83
[2024-07-03] MEDS: PROTONIX 40 MG PO (08:05)
[2024-07-03] MEDS: VITAMIN B1 100 MG PO (08:06)
[2024-07-03] MEDS: LEXAPRO 20 MG PO (08:06)
[2024-07-03] MEDS: FOLVITE 1 MG PO (08:06)
[2024-07-03] MEDS: LUMINAL 32.4 MG PO (08:06)
--- NOTE | 2024-07-03 10:37 | W.PN.HOSP.TC ---
Addendum entered and electronically signed by Kandi Neal MD 07/03/24 15:10:
total DC time 36 min
Original Note:
Today's Communication/Plan
-
see A/P
Assessment / Plan
Assessment / Plan
A/P:
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
MSAS protocol
phenobarbital taper would be stopped at DC
follow LFTs with outpt PCP
continue thiamine and folic acid
[facility] on board
# anxiety disorder
Pt states that she has inner anxiety, felt this is the reason for her alcohol abuse
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
Psych recc outpatient addictions therapy; and reassessment of anxiety after a significant period of sobriety
# Hyperkalemia, resolved
# Essential Hypertension
cont meds as able
# Hyperlipidemia
Hold Lipitor now with elevated LFT
# Post-Surgical Hypothyroidism
Cont Synthroid
# Chronic diarrhea
C diff and stool Cx negative
Imodium PRN
Pt can follow up with outpt GI
DVT proph: SCDs
Code Status: Full Code
Dispo: PT OT recc HH
DW RN
Anticipated Discharge: Today
Subjective/Interval History
-
Date of Service: July 03, 2024
Objective Data
-
Labs:
Laboratory Results
07/03/24
06:18
Sodium 138
Potassium 4.4
Chloride 99
Carbon Dioxide 27
BUN 13
Creatinine 0.6
Glucose 107 H
Calcium 8.9
Total Bilirubin 0.6
AST 77 H
ALT 79 H
Alkaline Phosphatase 86
Vital Signs:
Vital Signs
Temp Pulse Resp BP Pulse Ox
36.9 C 83 16 121/83 95
07/03/24 07:30 07/03/24 07:30 07/03/24 07:30 07/03/24 07:30 07/03/24 07:30
I&O
07/02/24 07/03/24 07/04/24
06:59 06:59 06:59
Intake Total 840 / 840 860 / 860
Balance 840 / 840 860 / 860
Review of Systems
-
All other systems: Reviewed and negative
Psych: Reports Anxious
Physical Exam
-
General: Well Developed, Well Nourished, No Apparent Distress, Comfortable and Conversant
HEENT: Normocephalic and Atraumatic
Respiratory: Clear to Auscultation and Non Labored Respirations; Negative Wheezes, Rhonchi or Accessory Resp Muscle Use
Cardiac: Regular Rhythm and S1/S2; Negative Murmur
GI: Soft, Nontender, Nondistended and Normal Bowel Sounds
Musculoskeletal: No Clubbing, No Cyanosis and No Edema
Skin: Warm
Neuro: Awake and Alert
Psych: Calm and Intact Judgement/Insight (somewhat)
Data Reviewed
-
CT Scan: Image personally visualized and interpreted and Report Reviewed by me
Medical Tests (Nuc Med, Echo etc): Report Reviewed by me
Labs: Labs Reviewed by me
[2024-07-03 13:01] VITALS: BP 128/88
--- NOTE | 2024-07-03 14:14 | CM ---
Reviewed chart, patient medically cleared for discharge. Patient signed IMM. She stated that she is agreeable to services but not [facility]. Spoke with [facility] and Liz and neither agency goes to [place]. Placed a call to patient to review choice of
agency.
Plan: Case management will continue to follow and assist with discharge planning. Home with [facility] if patient is still interested.
--- NOTE | 2024-07-03 14:24 | W.DCSUMMARY ---
Discharge Summary
Discharge Data
Date of Admission: 06/28/24
Date of Discharge: 07/03/24
-
Pending Results: No
Hospital Course
Principal Diagnosis:
Alcohol withdrawal with mild Alcoholic Hepatitis.
Chronic Diagnoses:�
Anxiety disorder on Lexapro
Essential Hypertension, stable without medication this admission (Norvasc and Labetalol were discontinued this admission)
Hyperlipidemia
Post-Surgical Hypothyroidism, continue Synthroid
Chronic diarrhea, continue Imodium PRN
Consultations:�
Psychiatry
Procedures:�
None
Clinical course:�
This is 73-year-old female, with past medical history as stated above, who presented with alcohol withdrawal.
Problem 1:
Alcohol withdrawal with mild Alcoholic Hepatitis.
She was covered with MSAS protocol and received phenobarbital taper while in the hospital.
Her LFT has been stable during her hospital stay, at the time of discharge, AST at 77 and ALT at 79.
She can follow-up outpatient LFT with her PCP outpatient.
Her CT AP was unrevealing, showed no significant acute intra-abdominal abnormality.
She has been provided with outpatient alcohol rehab resources, and she has been informed to follow-up with outpatient alcohol rehab outpatient.
As for the rest of her medical problems, they were stable during her hospital stay.
Discharge Plan
-
Patient Disposition: Home with Home Care
Discharge Diagnosis/Procedures: alcohol withdrawal
Condition: Fair
Diet: As tolerated
Additional Diets: AVOID alcohol intake
Activity: As tolerated
Driving Restrictions: Not until seen by your Dr
Blood Work: LFT in 1 week with result to your PCP
Referrals:
NONE,* [Family Provider] - in less than 1 week
Additional Discharge Medication Instructions: Stop Norvasc and Labetalol (your blood pressure has been stable without these medications during hospital stay)
Hold Lipitor until further directed by your PCP (your liver enzymes are slightly elevated)
Prescriptions:
Continued
escitalopram oxalate 10 MG tablet
20 mg PO DAILY
oxycodone-acetaminophen 5-325 mg Tablet
1 tab PO Q6HPRN PRN (Reason: severe pain)
levothyroxine [Synthroid] 112 mcg Tablet
112 mcg PO DAILY
Rx Instructions:
Patient needs brand name synthroid
loperamide 2 mg Capsule
2 mg PO Q6HPRN PRN (Reason: diarrhea)
omeprazole 20 mg Tablet,Delayed Release (Dr/Ec)
20 mg PO DAILY
Held
atorvastatin [Lipitor] 20 mg Tablet
20 mg PO DAILY
Hold Instructions: Resume on 07/10/24. until outpt LFT result
Discontinued
amlodipine [Norvasc] 5 MG tablet
5 mg PO DAILY Qty: 0 0RF
Rx Instructions:
Hold if systolic blood pressure <130 while on Oxycodone
labetalol 200 MG tablet
200 mg PO BID
Rx Instructions:
Hold if systolic blood pressure <100 while on Oxycodone
Discharge Orders:
Discharge Patient (As Directed); Ordered 07/03/24
Ordered By: Kandi Neal
Discharge Date and Time
Discharge Date/Time: 07/03/24 13:55
Print Language: BURUNDIAN
== END 2024-07-03 13:55 | disposition home health service (06) | DRG 433 ==
LOC: 3 WEST ACU 23:03
PROVIDERS: Emergency Medicine; Internal Medicine; Physician Assistant Medical; ADMITTING PHYSICIAN Internal Medicine; ATTENDING PHYSICIAN Internal Medicine; EMERGENCY PHYSICIAN Emergency Medicine; OTHER PHYSICIAN Psychiatry & Neurology Psychiatry
DX: K70.10 Alcoholic hepatitis without ascites (principal); F10.239 Alcohol dependence with withdrawal, unspecified; E87.5 Hyperkalemia; F10.229 Alcohol dependence with intoxication, unspecified; N18.32 Chronic kidney disease, stage 3b; I12.9 Hypertensive chronic kidney disease with stage 1 through stage 4 chronic kidney disease, or unspecified chronic kidney disease; E78.5 Hyperlipidemia, unspecified; E89.0 Postprocedural hypothyroidism; F32.A Depression, unspecified; F41.9 Anxiety disorder, unspecified; E83.42 Hypomagnesemia
CPT/HCPCS: 70450; 70486; 72125; 74177; 80048; 80053; 82077; 82977; 83690; 83735; 84100; 85025; 85027; 85610; 87045; 87046; 87324; 87427; 87449; 93005; 96361; 96374; 96375; 96376; 97116; 97163; 97167; 97530; 99285; Q9967

== ENCOUNTER → 2024-07-15 12:25 | Outpatient (REF) | payer MEDICARE, SELFPAY ==
[2024-07-15 14:02] LABS: ALT (SGPT) 35 U/L (0-35); AST (SGOT) 34 U/L (14-36); Albumin 4.7 g/dl (3.5-5.0); Alkaline Phosphatase 83 U/L (38-126); Direct Bilirubin 0.1 mg/dl (0.0-0.4); Total Bilirubin 0.3 mg/dl (0.2-1.3); Total Protein 7.1 g/dl (6.3-8.2)
== END ==
LOC: REG 12:25
PROVIDERS: ATTENDING PHYSICIAN Internal Medicine; FAMILY PHYSICIAN Internal Medicine
DX: R11.10 Vomiting, unspecified (principal)
CPT/HCPCS: 36415; 80076

== ENCOUNTER → 2024-08-18 06:54 | Outpatient (REF) | payer MEDICARE, SELFPAY | LOC: MRI 06:54 | PROVIDERS: ATTENDING PHYSICIAN Orthopaedic Surgery Hand Surgery; FAMILY PHYSICIAN Internal Medicine | DX: M19.012 Primary osteoarthritis, left shoulder (principal); W19.XXXA Unspecified fall, initial encounter | CPT/HCPCS: 73218 ==

== ENCOUNTER 2024-09-23 07:34 | Day surgery (SDC) | payer MEDICARE, SELFPAY ==
[2024-09-17 10:59] LABS: Hematocrit 36.7 % (37.0-47.0); Hemoglobin 12.2 g/dL (12.0-16.0); Mean Corp Hgb Conc. 33.2 g/dL (33.0-37.0); Mean Corpuscular Hgb 31.1 pg (27.0-31.0); Mean Corpuscular Volume 93.6 fL (81.0-99.0); Mean Platelet Volume 9.2 fL (7.4-10.4); Platelet Count 211 10^3/uL (130-400); Red Blood Cell Count 3.92 10^6/uL (4.20-5.40); Red Cell Dist. Width 12.2 % (11.5-14.5); White Blood Cell Count 5.1 10^3/uL (4.8-10.8)
[2024-09-17 11:47] LABS: ALT (SGPT) 16 U/L (0-35); AST (SGOT) 24 U/L (14-36); Albumin 4.7 g/dl (3.5-5.0); Alkaline Phosphatase 66 U/L (38-126); Blood Urea Nitrogen 17 mg/dl (7-17); Calcium 9.3 mg/dl (8.4-10.2); Carbon Dioxide 29 mmol/L (22-30); Chloride 101 mmol/L (98-107); Glucose 106 mg/dl (70-99); Potassium 4.7 mmol/L (3.5-5.1); Sodium 140 mmol/L (135-145); Total Bilirubin 0.6 mg/dl (0.2-1.3); Total Protein 7.2 g/dl (6.3-8.2); eGFR > 60.00
[2024-09-17 11:57] LABS: Glycohemoglobin (HgbA1c) 5.8 % (4.0-5.6)
[2024-09-17 12:22] VITALS: BMI 30.7
[2024-09-23] VITALS (14 sets, daily range): BP systolic 86–139; BP diastolic 52–99; BMI 30.7
[2024-09-23] MEDS: NORMOSOL-R/PLASMALYTE-A 1000 IV (08:05)
[2024-09-23] MEDS: TYLENOL 1000 MG PO (08:05)
[2024-09-23] MEDS: CELEBREX 200 MG PO (08:05)
--- NOTE | 2024-09-23 13:16 | W.DS.TRANS ---
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
-
Discharge Instructions:
Sleep Apnea Risk Intermediate
Discharge Diagnosis/Procedures L DAKSHA Cervantes 09/23/24
Diet As tolerated
Activity No strenuous activity
Driving Restrictions No driving
Instructions:
Stand-Alone Forms: SDS Total Shoulder D/C Inst.
Changes to Home Medications: Yes
Discharge Medications:
DC Medications w/original date entered in [employer]
levothyroxine 112 mcg tablet (Synthroid) 112 mcg PO DAILY Thyroid 03/03/23
loperamide 2 mg capsule 2 mg PO Q6HPRN PRN diarrhea 06/29/24
atorvastatin 20 mg tablet (Lipitor) 20 mg PO DAILY 09/12/24
escitalopram oxalate 20 mg tablet 20 mg PO DAILY 09/12/24
lorazepam 1 mg tablet 1 mg PO BID 09/12/24
omeprazole 40 mg capsule,delayed release 40 mg PO DAILY 09/12/24
amlodipine 5 mg tablet (Norvasc) 5 mg PO DAILY 09/23/24
aspirin 325 mg tablet 325 mg PO DAILY blood clot prevention #1 tab 09/23/24
docusate sodium 100 mg capsule (Colace) 100 mg PO BID stool softner #1 cap 09/23/24
labetalol 200 mg tablet 200 mg PO DAILY 09/23/24
magnesium hydroxide 400 mg/5 mL oral suspension (Milk of Magnesia) 30 ml PO HS PRN Constipation #1 mL 09/23/24
oxycodone-acetaminophen 10 mg-325 mg tablet (Percocet) 1 tab PO Q6H PRN moderate-severe pain #30 tabs 09/23/24
sennosides 8.6 mg tablet (Senokot) 17.2 mg (2 x 8.6 mg) PO BID laxative #2 tabs 09/23/24
Home Medication Changes
aspirin 325 mg tablet 325 mg PO DAILY blood clot prevention #1 tab 09/23/24
docusate sodium 100 mg capsule (Colace) 100 mg PO BID stool softner #1 cap 09/23/24
labetalol 200 mg tablet 200 mg PO DAILY 09/23/24
magnesium hydroxide 400 mg/5 mL oral suspension (Milk of Magnesia) 30 ml PO HS PRN Constipation #1 mL 09/23/24
oxycodone-acetaminophen 10 mg-325 mg tablet (Percocet) 1 tab PO Q6H PRN moderate-severe pain #30 tabs 09/23/24
sennosides 8.6 mg tablet (Senokot) 17.2 mg (2 x 8.6 mg) PO BID laxative #2 tabs 09/23/24
Pending Results: No
[2024-09-23] MEDS: ANCEF 5 IV (13:49)
== END 2024-09-23 14:20 | disposition home or self-care (01) ==
LOC: SDS 07:34
PROVIDERS: ATTENDING PHYSICIAN Orthopaedic Surgery Hand Surgery; FAMILY PHYSICIAN Internal Medicine
DX: M19.012 Primary osteoarthritis, left shoulder (principal)
CPT/HCPCS: 23472; C1776; C1713; 36415; 73020; 80053; 83036; 85027; 87070

== ENCOUNTER 2024-10-11 14:04 | Emergency (ER) | payer MEDICARE, SELFPAY ==
[2024-10-11 14:17] VITALS: BP 134/75
[2024-10-11 14:42] LABS: % Eosinophils 2.6 % (0-6); % Immature Granulocytes 0.5 % (0-0.5); % Lymphocytes 14.7 % (20.5-51.1); % Monocytes 5.6 % (1.7-9.3); % Neutrophils 75.6 % (42.2-75.2); Absolute Basophils 0.1 10^3/uL (0-0.2); Absolute Eosinophils 0.2 10^3/uL (0-0.7); Absolute Lymphocytes 0.9 10^3/uL (1.2-3.4); Absolute Monocytes 0.4 10^3/uL (0.1-0.6); Absolute Neutrophils 4.7 10^3/uL (1.4-6.5); Hematocrit 34.9 % (37.0-47.0); Hemoglobin 11.4 g/dL (12.0-16.0); Mean Corp Hgb Conc. 32.7 g/dL (33.0-37.0); Mean Corpuscular Hgb 29.8 pg (27.0-31.0); Mean Corpuscular Volume 91.4 fL (81.0-99.0); Mean Platelet Volume 8.7 fL (7.4-10.4); Nucleated Red Blood Cells % 0 %; Platelet Count 317 10^3/uL (130-400); Red Blood Cell Count 3.82 10^6/uL (4.20-5.40); Red Cell Dist. Width 12.6 % (11.5-14.5); White Blood Cell Count 6.3 10^3/uL (4.8-10.8)
[2024-10-11 14:57] LABS: Lactic Acid 0.8 mmol/L (0.7-2.0)
[2024-10-11 15:00] LABS: ALT (SGPT) 13 U/L (0-35); AST (SGOT) 23 U/L (14-36); Alkaline Phosphatase 152 U/L (38-126); Blood Urea Nitrogen 17 mg/dl (7-17); Calcium 9.8 mg/dl (8.4-10.2); Carbon Dioxide 28 mmol/L (22-30); Chloride 98 mmol/L (98-107); Glucose 121 mg/dl (70-99); Potassium 4.8 mmol/L (3.5-5.1); Sodium 137 mmol/L (135-145); Total Bilirubin 0.9 mg/dl (0.2-1.3); Total Protein 7.6 g/dl (6.3-8.2); eGFR > 60.00
[2024-10-11 15:13] LABS: Lipase 39 U/L (23-300)
[2024-10-11] MEDS: LR 1000 IV (17:53)
[2024-10-11] MEDS: ZOFRAN 4 MG IV ×2 (17:54→20:28)
[2024-10-11 17:56] VITALS: BP 120/68
--- NOTE | 2024-10-11 18:50 | ED.GENMED ---
History of Present Illness
General
Chief Complaint: Abdominal Symptoms
Source: patient
Exam Limitations: none
Time Seen by Provider: 10/11/24 17:25
Nursing documentation reviewed up to this point in time: agreed with
History of Present Illness
History of Present Illness:
74-year-old female presents emergency department due to nausea and vomiting. She was sitting down and then began experiencing nausea and vomiting. She denies abdominal pain at this time.
Past History
Past History
ED Past Medical History: HTN, Hypothyroidism, Other (ETOH abuse/dependency, C. difficile) and Other (Patient has a history of neck and back pain, Mitral valve prolapse, arthritis, thyroid disorder.)
ED Past Surgical History: Appendectomy, Gynecological and Other (Patient has history of thyroid surgery due to thyroid cancer, right knee surgery, tubal ligation, hysterectomy, hernia surgery, Savage cyst surgery, and lip surgery x8)
Patient has exhibited threatening behavior?: No
PSI?: No
Social History
Tobacco: Non-smoker
Alcohol: Daily (Wine at least 3 glasses)
Drug: None
Personal:
Living: alone
Employment: Retired
Family History
Family History: Diabetes and Other (Noncontributory)
Review of Systems
Review of Systems
Allergies reviewed?: Yes
All Other Systems: Not applicable
Constitutional: Reports no symptoms
EENT: Reports no symptoms
Respiratory: Reports no symptoms
Cardiac: Reports no symptoms
ABD/GI: Reports nausea and vomiting
: Reports no symptoms
Musculoskeletal: Reports no symptoms
Skin: Reports no symptoms
Neurological: Reports no symptoms
Endocrine: Reports no symptoms
Hematologic/Lymphatic: Reports no symptoms
Psychiatric: Reports no symptoms
Phy Exam
Physical Exam
Physical Exam:
Physical Exam
General: no apparent distress, not acutely ill
Neck: supple. no meningeal signs. normal posterior pharynx
Heart: s1/s2 regular rate and rhythm, no murmur. equal radial
pulses.
HEENT: Pupils equal round reactive to light, EOMI
Lungs: no acute respiratory distress. clear bilaterally
Abdomen: normal bowel sounds. not tender. no CVAT
Neuro: alert and oriented. no focal neurological deficits cranial nerves II through XII intact
Skin: no rash
Psychiatric: well kept. interactive and cooperative
Extremities: no edema. no calf tenderness. negative homans. good distal pulses, left arm in sling
Course
Orders/Labs/Results
Orders:
Orders
10/11/24 14:20
CR Abdomen - 1 View Urgent
Comment:
Reason For Exam: nausea/vomiting
10/11/24 14:27
Complete Blood Count/With Diff Urgent
Comprehensive Metabolic Panel Urgent
Lactic Acid Urgent
Lipase Urgent
10/11/24 17:39
IV Insert/Care/Rem.- Treatment PRN
Lactated Ringers [Lr] 1,000 ml IV BOLUS
Ondansetron Injectable [Zofran] 4 mg IV NOW STA
10/11/24 20:19
Ondansetron Injectable [Zofran] 4 mg IV NOW STA
Abnormal Lab Results
10/11/24
14:27
RBC 3.82 L 10^6/uL
(4.20-5.40)
Hgb 11.4 L g/dL
(12.0-16.0)
Hct 34.9 L %
(37.0-47.0)
MCHC 32.7 L g/dL
(33.0-37.0)
Absolute Lymphs (auto) 0.9 L 10^3/uL
(1.2-3.4)
Neutrophils % 75.6 H %
(42.2-75.2)
Lymphocytes % 14.7 L %
(20.5-51.1)
Glucose 121 H mg/dl
(70-99)
Alkaline Phosphatase 152 H U/L
(38-126)
10/11/24 14:27
10/11/24 14:27
Vital Signs
Initial and Last Documented VS:
Initial Vital Signs
Temp Pulse Resp BP Pulse Ox
98.2 F 64 20 134/75 96
10/11/24 14:17 10/11/24 14:17 10/11/24 14:17 10/11/24 14:17 10/11/24 14:17
Last Documented Vital Signs
Temp Pulse Resp BP Pulse Ox
98.2 F 64 18 120/68 93
10/11/24 14:17 10/11/24 17:56 10/11/24 17:56 10/11/24 17:56 10/11/24 17:56
MDM/Problems Addressed
Differential Diagnosis Includes:
Bowel obstruction, viral cause
MDM/Problems Addressed:
74-year-old female with nausea vomiting. Abdomen exam benign. Improved after IV fluids and Zofran. Stable for discharge. Return precautions
Chronic conditions affecting care: HTN
*Radiology
Radiology exam reviewed: preliminary read by ED provider (Abdominal x-ray no acute findings)
*Pulse Oximetry
Patient hypoxic: no
*Critical Care Note
Total Time (30-74mins, 75-104mins- exclusive of procedures): Not Applicable
Patient Management
Social determinants of health affecting care: Living situation and Strong social support
Escalation/DeEscalation of care consider admission/obs:
admit not indicated
ED Attending Note
-
Portions of this chart may have been created with voice recognition software.� Occasional wrong word or��sound alike� substitutions may have occurred due to the inherent limitations of voice recognition software.
Discharge Plan
Departure
Patient Disposition: Home (Routine Discharge)
Date of Disposition: 10/11/24
Time of Disposition: 20:37
Patient with high blood pressure during this ER visit?: Yes
Condition: Good
Discharge Problem:
Vomiting
Instructions: Nausea and Vomiting, Adult (DC)
Prescriptions:
New
ondansetron 4 mg tablet,disintegrating
4 mg PO Q8H PRN (Reason: nausea and vomiting) 4 Days Qty: 7 0RF
No Action
levothyroxine [Synthroid] 112 mcg Tablet
112 mcg PO DAILY
Rx Instructions:
Patient needs brand name synthroid
loperamide 2 mg Capsule
2 mg PO Q6HPRN PRN (Reason: diarrhea)
atorvastatin [Lipitor] 20 mg Tablet
20 mg PO DAILY
omeprazole 40 mg Capsule,Delayed Release(Dr/Ec)
40 mg PO DAILY
lorazepam 1 mg Tablet
1 mg PO BID
escitalopram oxalate 20 mg Tablet
20 mg PO DAILY
labetalol 200 mg Tablet
200 mg PO DAILY
amlodipine [Norvasc] 5 mg Tablet
5 mg PO DAILY
aspirin 325 mg tablet
325 mg PO DAILY Qty: 1 0RF
Rx Instructions:
Take with food
docusate sodium [Colace] 100 mg capsule
100 mg PO BID Qty: 1 0RF
magnesium hydroxide [Milk of Magnesia] 400 mg/5 mL suspension
30 ml PO HS PRN (Reason: Constipation) Qty: 1 0RF
oxycodone-acetaminophen [Percocet] 10-325 mg tablet
1 tab PO Q6H PRN (Reason: moderate-severe pain) Qty: 30 0RF
Rx Instructions:
1/2 tab moderate pain or [address] Joshua Cervantes
sennosides [Senokot] 8.6 mg tablet
17.2 mg PO BID Qty: 2 0RF
Referrals:
Axel Becerra MD [Family Provider] - Call in 1-3 days for appt
Interventions
Interventions:
*Risk Screen - Suicide Last Done: 10/11/24 17:57
*General Assessment Last Done: 10/11/24 14:17
*Neglect/Abuse Screening Last Done: 10/11/24 17:57
*ED COVID-19 Vaccine History Last Done: 10/11/24 17:56
WP-Rak[facility]-Xmuffutwux Assessment Last Done: 10/11/24 18:00
Discharge Date and Time
Print Language: MAORI
== END 2024-10-11 21:08 | disposition home or self-care (01) ==
LOC: EMR 14:04
PROVIDERS: Student in an Organized Health Care Education/Training Program; EMERGENCY PHYSICIAN Emergency Medicine; FAMILY PHYSICIAN Internal Medicine
DX: R11.2 Nausea with vomiting, unspecified (principal); I10 Essential (primary) hypertension
CPT/HCPCS: 99284; 96374; 96361; 96376; 74018; 80053; 83605; 83690; 85025

== ENCOUNTER → 2024-11-29 15:09 | Outpatient (REF) | payer MEDICARE, SELFPAY ==
[2024-11-29 16:08] LABS: % Basophils 0.8 % (0-2); % Eosinophils 4.6 % (0-6); % Immature Granulocytes 0.2 % (0-0.5); % Lymphocytes 31.9 % (20.5-51.1); % Monocytes 8.2 % (1.7-9.3); % Neutrophils 54.3 % (42.2-75.2); Absolute Eosinophils 0.2 10^3/uL (0-0.7); Absolute Lymphocytes 1.6 10^3/uL (1.2-3.4); Absolute Monocytes 0.4 10^3/uL (0.1-0.6); Absolute Neutrophils 2.7 10^3/uL (1.4-6.5); Hematocrit 34.4 % (37.0-47.0); Hemoglobin 10.8 g/dL (12.0-16.0); Mean Corp Hgb Conc. 31.4 g/dL (33.0-37.0); Mean Corpuscular Volume 92.2 fL (81.0-99.0); Mean Platelet Volume 9.6 fL (7.4-10.4); Nucleated Red Blood Cells % 0 %; Platelet Count 221 10^3/uL (130-400); Red Blood Cell Count 3.73 10^6/uL (4.20-5.40); Red Cell Dist. Width 13.8 % (11.5-14.5)
[2024-11-29 16:27] LABS: ALT (SGPT) 17 U/L (0-35); AST (SGOT) 25 U/L (14-36); Albumin 4.8 g/dl (3.5-5.0); Alkaline Phosphatase 88 U/L (38-126); Blood Urea Nitrogen 13 mg/dl (7-17); Calcium 9.3 mg/dl (8.4-10.2); Carbon Dioxide 30 mmol/L (22-30); Chloride 100 mmol/L (98-107); Glucose 80 mg/dl (70-99); Sodium 137 mmol/L (135-145); Total Bilirubin 0.8 mg/dl (0.2-1.3); Total Protein 6.7 g/dl (6.3-8.2); eGFR > 60.00
[2024-11-29 16:56] LABS: TSH 0.26 uIU/ml (0.47-4.68)
[2024-11-30 09:26] LABS: Glycohemoglobin (HgbA1c) 5.8 % (4.0-5.6)
== END ==
LOC: REG 15:09
PROVIDERS: ATTENDING PHYSICIAN Internal Medicine
DX: I10 Essential (primary) hypertension (principal); E03.9 Hypothyroidism, unspecified; F41.9 Anxiety disorder, unspecified; F32.A Depression, unspecified; R73.01 Impaired fasting glucose; D64.9 Anemia, unspecified
CPT/HCPCS: 36415; 80053; 83036; 84443; 85025

== ENCOUNTER → 2025-01-29 08:30 | Outpatient (REF) | payer MEDICARE, SELFPAY | LOC: REG 08:30 | PROVIDERS: ATTENDING PHYSICIAN Student in an Organized Health Care Education/Training Program; FAMILY PHYSICIAN Internal Medicine | DX: M79.672 Pain in left foot (principal) | CPT/HCPCS: 87070; 87075; 87077; 87205 ==

== ENCOUNTER → 2025-03-26 12:50 | Outpatient (REF) | payer MEDICARE, SELFPAY ==
[2025-03-26 14:23] LABS: Hematocrit 34.4 % (37.0-47.0); Hemoglobin 11.1 g/dL (12.0-16.0); Mean Corp Hgb Conc. 32.3 g/dL (33.0-37.0); Mean Corpuscular Volume 90.3 fL (81.0-99.0); Nucleated Red Blood Cells % 0 %; Platelet Count 254 10^3/uL (130-400); Red Cell Dist. Width 15.3 % (11.5-14.5); Reticulocyte Count 1.4 % (0.4-2.8)
[2025-03-26 15:52] LABS: Iron 103 ug/dl (37-170)
[2025-03-26 16:03] LABS: Total Iron Binding Capacity 441 ug/dl (265-497)
[2025-03-26 16:23] LABS: Ferritin 28.3 ng/ml (11.1-264.0)
[2025-03-26 16:54] LABS: Folate 9.4 ng/ml (2.76-20); Vitamin B12 390 pg/ml (239-931)
[2025-03-31 04:13] LABS: Albumin 4.39 g/dL (3.75-5.01); Free Kappa Light Chains,Quant 13.13 mg/L (3.30-19.40); Free Lambda Light Chains,Quant 8.45 mg/L (5.71-26.30); Immunofixation Electrophoresis IFE Done; Kappa/Lambda Fr Light Ratio 1.55 (0.26-1.65); Total Protein-Electrophoresis 6.7 g/dL (6.3-8.2)
== END ==
LOC: REG 12:50
PROVIDERS: ATTENDING PHYSICIAN Internal Medicine Hematology & Oncology; FAMILY PHYSICIAN Internal Medicine
DX: D64.9 Anemia, unspecified (principal); D46.9 Myelodysplastic syndrome, unspecified; F10.20 Alcohol dependence, uncomplicated
CPT/HCPCS: 36415; 82607; 82728; 82746; 82784; 83521; 83540; 83550; 84155; 84165; 85025; 85045; 85652; 86334

== ENCOUNTER → 2025-07-02 14:47 | Outpatient (REF) | payer MEDICARE, SELFPAY ==
[2025-07-02 16:20] LABS: Hematocrit 35.6 % (37.0-47.0); Hemoglobin 11.8 g/dL (12.0-16.0); Mean Corp Hgb Conc. 33.1 g/dL (33.0-37.0); Mean Corpuscular Volume 90.6 fL (81.0-99.0); Nucleated Red Blood Cells % 0 %; Platelet Count 244 10^3/uL (130-400); Red Cell Dist. Width 14.0 % (11.5-14.5)
[2025-07-02 16:38] LABS: Iron 68 ug/dl (37-170)
[2025-07-02 16:47] LABS: Total Iron Binding Capacity 427 ug/dl (265-497)
[2025-07-02 17:12] LABS: Ferritin 34.2 ng/ml (11.1-264.0)
[2025-07-02 17:43] LABS: Folate > 20.0 ng/ml (2.76-20); Vitamin B12 777 pg/ml (239-931)
== END ==
LOC: REG 14:47
PROVIDERS: ATTENDING PHYSICIAN Internal Medicine Hematology & Oncology; FAMILY PHYSICIAN Internal Medicine
DX: D64.9 Anemia, unspecified (principal); D46.9 Myelodysplastic syndrome, unspecified; F10.20 Alcohol dependence, uncomplicated
CPT/HCPCS: 36415; 82607; 82728; 82746; 83540; 83550; 85025